=== PATIENT | male | born 1955 | race African-American/Black ===

== ENCOUNTER 2017-03-29 00:14 | Inpatient (IN) | payer OTHER ==
[2017-03-29 00:30] VITALS: BMI 23.9
--- NOTE | 2017-03-29 01:37 | PDOC ---
History of Present Illness - General Chief Complaint: Injury Stated Complaint: RIGHT ANKLE FRACTURE Time Seen by Provider: 03/29/17 01:37 - History of Present Illness Initial Comments: 62 year old male with PMH of sickle cell trait (one sickle crises 4 years prior ), chronic back pain (approximately once weekly oxycodone usage) presenting with right LE deformity and pain after mechanical trip and fall. He was walking down a hill near his home and attempted to avoid some visible ice only to step onto some black ice. At this point he slipped displacing his right leg outward and behind his body with his left leg forward. He reached out to brace himself with his right hand and injured his right wrist. He states that his foot was dragging on the right when he attempted to walk and could not bear weight and wasn't able to get up fully. He does admit to some initial parasthesias of his right foot but has sensation across his entire RLE. He has a known previous fracture of his right wrist and right shoulder from previous injuries. Did have some nausea with the sudden onset of pain. Denies fevers, chills, vomiting, diarrhea, chest pain, SOB, or other sick symptoms. 03/29/17 01:51 03/29/17 02:27 Past History - Past Medical History Allergies/Adverse Reactions: Allergies Allergy/AdvReac Type Severity Reaction Status Date / Time Penicillins Allergy Verified 03/29/17 00:29 Home Medications: Ambulatory Orders Divalproex [Depakote -] 250 mg PO HS 03/29/17 Divalproex [Depakote -] 500 mg PO ONCE 03/29/17 Anemia: Yes (sickle cell) COPD: No Hypercholesterolemia: Yes - Surgical History Abdominal Surgery: Yes (double hernia: 2001; hernia: 11/17/13) - Suicide/Smoking/Psychosocial Hx Smoking Status: No Smoking History: Never smoked Have you smoked in the past 12 months: No Number of Cigarettes Smoked Daily: 0 Information on smoking cessation initiated: No Hx Alcohol Use: No Drug/Substance Use Hx: No Substance Use Type: None Review of Systems - Review of Systems Constitutional: No: Chills, Diaphoresis, Fever HEENTM: No: Eye Pain, Blurred Vision Respiratory: No: Cough, Orthopnea, Shortness of Breath Cardiac (ROS): No: Chest Pain, Edema, Irregular Heart Rate ABD/GI: Yes: Nausea. No: Abdominal Distended, Diarrhea, Vomiting : No: Burning, Dysuria, Discharge Musculoskeletal: No: Back Pain, Joint Pain Integumentary: Yes: Lesions. No: Bruising, Flushing Neurological: No: Headache, Paresthesia *Physical Exam - Vital Signs Last Vital Signs Temp Pulse Resp BP Pulse Ox 97.4 F L 62 18 125/82 98 03/29/17 00:03/29/17 00:03/29/17 00:03/29/17 00:03/29/17 00:29 - Physical Exam General Appearance: Yes: Nourished, Appropriately Dressed. No: Apparent Distress HEENT: positive: EOMI, SAEED, Normal ENT Inspection, Normal Voice Neck: positive: Trachea midline, Normal Thyroid, Supple. negative: Tender, Rigid Respiratory/Chest: positive: Lungs Clear, Normal Breath Sounds. negative: Chest Tender, Respiratory Distress, Accessory Muscle Use Cardiovascular: positive: Regular Rhythm, Regular Rate Gastrointestinal/Abdominal: positive: Normal Bowel Sounds, Flat, Soft. negative : Tender Musculoskeletal: positive: Decreased Range of Motion. negative: Normal Inspection (Right leg TTP over entire tibia and ankle tender to palpation. Severe active and passive restriciton to movement of RLE 2/2 pain. No gross deformity or open skin. Leg does appear to be externally rotated with slightly inverted ankle. Left leg WNL. R wrist is slightly swollen and TTP with chronically restricted right hand squeeze since previous wrist injury. Patietn neurvascularly intact in R upper and R L extremties with good cap refill.) Extremity: positive: Normal Capillary Refill, Normal Inspection, Tender (Per above). negative: Normal Range of Motion Integumentary: positive: Normal Color, Dry, Warm Neurologic: positive: Fully Oriented, Alert, Normal Mood/Affect Procedures - Splinting Splint Location: Right: Ankle, Knee Pre-Proc Neuro Vasc Exam: normal Hand-Made Type: orthoglass Splint Type: Yes: Posterior (splint from foot to popliteal fossa), Long Leg ( splint wrapped around from lateral to medial knee) Post-Proc Neuro Vasc Exam: normal Danis Bandage: 6" Sling: No Complications: No Post splint xray: Yes Good repositioning: Yes ED Treatment Course - LABORATORY CBC & Chemistry Diagram: 03/29/17 02:18 02:09 Medical Decision Making - Medical Decision Making 62 year old male with mechanical trip and fall with xrays demonstrating displaced distal tibial and displaced proximal fibula fracture. Placed in posterior and stirrup splint with gentle re-approximation of normal anatomical position of RLE. He was neurovascularly intact before and after the procedure. 03/29/17 05:[address] Solis and admitted the patient under med surg for pain control and further operative management of this heavily displaced tib-fib fracture. Dr. Grace called back after the admission and we discussed the operative management of this case. He will have at look the films later in the day. CT of RLE pending. 03/29/17 06:30 *DC/Admit/Observation/Transfer Diagnosis at time of Disposition: Fracture tibia/fibula Qualifiers: Encounter type: initial encounter Fracture type: closed Laterality: right Qualified Code(s): S82.201A - Unspecified fracture of shaft of right tibia, initial encounter for closed fracture; S82.401A - Unspecified fracture of shaft of right fibula, initial encounter for closed fracture; S82.401A - Unspecified fracture of shaft of right fibula, initial encounter for closed fracture - Discharge Dispostion Condition at time of disposition: Stable Admit: Yes - Referrals Referrals: Stalin Gonsales MD [Primary Care Provider] - - Patient Instructions - Post Discharge Activity
[2017-03-29] MEDS ORDERED: morphine CARPU-JECT 4 MG/1 ML DISP.SYRIN IVPUSH ONE ×2 (01:48→04:55)
[2017-03-29] MEDS ORDERED: MORPHINE SULFATE 10 MG/1 ML *VIAL ONE ×2 (02:06→05:01)
[2017-03-29 02:18] LABS: BASO % 0.4 % (0-2.0); EOS % 0.9 % (0-4.5); HEMATOCRIT 41.4 % (35.4-49); HEMOGLOBIN 13.7 GM/dL (11.7-16.9); LYMPH % 14.5 % (8-40); MCH 31.1 pg (25.7-33.7); MCHC 33.1 g/dl (32.0-35.9); MEAN PLT VOLUME 8.5 fl (7.5-11.1); MONO % 7.4 % (3.8-10.2); NEUT % 76.8 % (42.8-82.8); PLATELET COUNT 185 K/MM3 (134-434); RDW 14.3 % (11.9-15.9)
[2017-03-29 02:38] LABS: INR 0.91 (0.82-1.09); PROTHROMBIN TIME (PATIENT) 10.3 SEC (9.98-11.88)
--- NOTE | 2017-03-29 02:40 | PDOC ---
Attending Attestation - [facility] HPI: 03/29/17 03:40 The patient is a 62 year old male with a significant past medical history of sickle cell trait (one sickle crisis 4 years prior), chronic back pain ( approximately once weekly oxycodone usage) presenting with right leg pain after mechanical trip and fall. He states he was walking down a hill near his home and while attempting to avoid some visible ice, slipped and fell on a separate ice patch. He reports slipping with his right leg outstretched and behind his body while his left leg remained forward. He reportedly reached out to brace his fall and subsequently injured his right wrist. He states could not bear weight and wasn't able to get up from the floor. He has a known previous fracture of his right wrist and right shoulder from previous injuries. The patient denies chest pain, shortness of breath, headache and dizziness. The patient denies fever, chills, nausea, vomit, diarrhea and constipation. The patient denies dysuria, frequency, urgency and hematuria. - Physicial Exam PE: 03/29/17 03:40 GENERAL: Well developed, well nourished. Awake and alert. No acute distress. HEENT: Normocephalic, atraumatic. PERRLA, EOMI. No conjunctival pallor. Sclera are non- icteric. Moist mucous membranes. Oropharynx is clear. NECK: Supple. Full ROM. No JVD. Carotid pulses 2+ and symmetric, without bruits. No thyromegaly. No lymphadenopathy. CARDIOVASCULAR: Regular rate and rhythm. No murmurs, rubs, or gallops. Distal pulses are 2+ and symmetric. PULMONARY: No evidence of respiratory distress. Lungs clear to auscultation bilaterally. No wheezing, rales or rhonchi. ABDOMINAL: Soft. Non-tender. Non-distended. No rebound or guarding. No organomegaly. Normoactive bowel sounds. MUSCULOSKELETAL Normal range of motion at all joints. No bony deformities or tenderness. No CVA tenderness. EXTREMITIES: (+) Decreased Range of Motion. Right LE is tender over entire tibia and ankle. Severe active and passive restriction to movement of RLE. Right LE is slightly externally rotated with slightly inverted ankle. Left leg WNL. The patient's right wrist is slightly swollen and tender to palpation. Pt has chronic restricted movement of right wrist secondary to previous injury. No cyanosis. No clubbing. No calf tenderness. remainder of extremities WNL. SKIN: Warm and dry. Normal capillary refill. No rashes. No jaundice. NEUROLOGICAL: Alert, awake, appropriate. Cranial nerves 2-12 intact. Normoreflexic in the upper and lower extremities. Normal speech. Toes are down-going bilaterally. Gait is normal without ataxia. PSYCHIATRIC: Cooperative. Good eye contact. Appropriate mood and affect. - Medical Decision Making 03/29/17 03:40 Documentation prepared by Angela Jimenez, acting as medical record coder for Zac Metz DO. 03/29/17 05:19 Dr. Grace, Orthopedist on-call, was paged via phone answering service requesting a doctor to doctor regarding this patient. 03/29/17 05:39 Upon 2nd attempt to page Dr. Grace, I was informed by the answering service that pages get sent to this physician every 45 minutes and requested I call in another 20 minutes to send the 2nd page requesting call back. <Angela Jimenez - Last Filed: 03/29/17 05:39> - Resident Resident Name: Flavio Delacruz - ED Attending Attestation I have performed the following: I have examined & evaluated the patient, The case was reviewed & discussed with the resident, I agree w/resident's findings & plan, Exceptions are as noted - Medical Decision Making 03/29/17 05:41 Pt admitted for orthopedic repair and pain control. <Zac Metz - Last Filed: 03/29/17 05:43>
[2017-03-29 02:41] LABS: ALBUMIN 3.5 g/dl (3.4-5.0); ALK PHOS 74 U/L (45-117); ANION GAP 6 (8-16); BILIRUBIN,TOTAL 0.4 mg/dL (0.2-1.0); BLOOD UREA NITROGEN 20 mg/dL (7-18); CALCIUM 8.5 mg/dL (8.5-10.1); CHLORIDE 106 mmol/L (98-107); CO2 29 mmol/L (21-32); CREATININE 1.2 mg/dL (0.7-1.3); GLUCOSE,RANDOM 85 mg/dL (74-106); POTASSIUM 5.2 mmol/L (3.5-5.1); SGOT/AST 17 U/L (15-37); SGPT/ALT 25 U/L (12-78); SODIUM 141 mmol/L (136-145); TOT PROT 6.8 g/dl (6.4-8.2)
[2017-03-29] MEDS ORDERED: HYDROmorphone HCL CARPU-JECT 1 MG/1 ML DISP.SYRIN IVPUSH ONE (05:16)
[2017-03-29] MEDS ORDERED: HYDROmorphone HCL CARPU-JECT 1 MG/1 ML DISP.SYRIN ONE (05:20)
--- NOTE | 2017-03-29 06:23 | HP ---
Admitting History and Physical - Primary Care Physician PCP: Stalin Gonsales - Admission Chief Complaint: s/p fall on ice R- leg pain History of Present Illness: This is a 62 y/o man who arrived to the ED s/p slip and fall on ice reports R- leg pain. Patient reports that while trying to avoid the ice he slipped on black ice, unable to bear weight. Patient denies head trauma or LOC. Patient denies fever, chills, cough, SOB, CP, AP, N/V/D, dysuria. History Source: Patient Limitations to Obtaining History: No Limitations - Past Medical History Heme/Onc: Yes: Sickle Cell Trait Musculoskeletal: Yes: Chronic low back pain - Past Surgical History Past Surgical History: Yes: Hernia Repair (double) - Smoking History Smoking history: Current some day smoker Have you smoked in the past 12 months: Yes Aproximately how many cigarettes per day: 0 (smokes cigars occasionally) - Alcohol/Substance Use Hx Alcohol Use: No History of Substance Use: reports: None - Social History Usual Living Arrangement: Yes: With Spouse ADL: Independent History of Recent Travel: No Home Medications - Allergies Allergies/Adverse Reactions: Allergies Allergy/AdvReac Type Severity Reaction Status Date / Time Penicillins Allergy Verified 03/29/17 00:29 - Home Medications Home Medications: Ambulatory Orders Divalproex [Depakote -] 250 mg PO HS 03/29/17 Divalproex [Depakote -] 500 mg PO ONCE 03/29/17 Home Medications (free text): Oxycontin Family Disease History - Family Disease History Family History: Unremarkable Review of Systems - Review of Systems Constitutional: reports: No Symptoms Eyes: reports: No Symptoms HENT: reports: No Symptoms Neck: reports: No Symptoms Cardiovascular: reports: No Symptoms Respiratory: reports: No Symptoms Gastrointestinal: reports: No Symptoms Genitourinary: reports: No Symptoms Breasts: reports: No Symptoms Reported Musculoskeletal: reports: Decreased ROM, Extremity Pain (R-leg), Joint Pain Integumentary: reports: No Symptoms Neurological: reports: No Symptoms Endocrine: reports: No Symptoms Hematology/Lymphatic: reports: No Symptoms Psychiatric: reports: No Symptoms Pain Intensity: 6 Physical Examination Vital Signs: Vital Signs Temperature 97.4 F L 03/29/17 00:29 Pulse Rate 62 03/29/17 00:29 Respiratory Rate 18 03/29/17 00:29 Blood Pressure 125/82 03/29/17 00:29 O2 Sat by Pulse Oximetry (%) 98 03/29/17 00:29 Constitutional: Yes: Well Nourished, No Distress, Calm Eyes: Yes: WNL, Conjunctiva Clear, EOM Intact, PERRL HENT: Yes: WNL, Atraumatic, Normocephalic Neck: Yes: WNL, Supple, Trachea Midline Cardiovascular: Yes: WNL, Regular Rate and Rhythm, S1, S2 Respiratory: Yes: WNL, Regular, CTA Bilaterally Gastrointestinal: Yes: WNL, Normal Bowel Sounds, Soft ...Rectal Exam: Yes: Deferred Renal/: Yes: WNL Breast(s): Yes: WNL Musculoskeletal: Yes: WNL Extremities: Yes: Deformity (right tib/fib) Peripheral Pulses WNL: Yes Integumentary: Yes: Other (superficial abrasions to right hand) Labs: CBC, BMP 03/29/17 02:09 03/29/17 02:09 Imaging - Results X-ray: Image Reviewed Cat Scan: Pending Problem List - Problems (1) Fracture tibia/fibula Code(s): S82.209A - UNSP FRACTURE OF SHAFT OF UNSP TIBIA, INIT FOR CLOS FX; S82.409A - UNSP FRACTURE OF SHAFT OF UNSP FIBULA, INIT FOR CLOS FX Qualifiers: Encounter type: initial encounter Fracture type: closed Laterality: right Qualified Code(s): S82.201A - Unspecified fracture of shaft of right tibia, initial encounter for closed fracture; S82.401A - Unspecified fracture of shaft of right fibula, initial encounter for closed fracture; S82.401A - Unspecified fracture of shaft of right fibula, initial encounter for closed fracture (2) Chronic low back pain Code(s): M54.5 - LOW BACK PAIN; G89.29 - OTHER CHRONIC PAIN (3) Sickle cell trait Code(s): D57.3 - SICKLE-CELL TRAIT (4) DVT prophylaxis Code(s): [id number] - Assessment/Plan This is a 62 y/o man with sickle cell trait, chronic low back pain who is s/p fall on ice. Admitted with R-Proximal Fibula and Distal Tibia Fx. Plan: 1. R- Tib/Fib Fx - Admit M/S - Appreciate Ortho consult - Pain Mgmt - Splint - neuro vascular checks - NPO - IVF 2. Chronic Low Back Pain - Stable - Continue to monitor and treat with interventions accordingly 3. FEN - D51/2NS@75cc/hr - Replete lytes prn - NPO 4. DVT Prophylaxis - SCD to LLE Code Status: Full Code Dispo: Requires Inpatient Care Visit type - Emergency Visit Emergency Visit: Yes ED Registration Date: 03/29/17 Care time: The patient presented to the Emergency Department on the above date and was hospitalized for further evaluation of their emergent condition. - New Patient This patient is new to me today: Yes Date on this admission: 03/29/17 - Critical Care Critical Care patient: No
[2017-03-29] MEDS ORDERED: MORPHINE SULFATE 10 MG/1 ML *VIAL IVPUSH PRN (06:28)
[2017-03-29] MEDS ORDERED: PT OWN MED DRAWER 7, Y5N ONE (10:02)
--- NOTE | 2017-03-29 10:07 | CON.ORTH ---
Consult Reason for Consultation:: right tib/fib fx - Past Medical History Musculoskeletal: Yes: Chronic low back pain - Past Surgical History Past Surgical History: Yes: Hernia Repair (double) - Alcohol/Substance Use Hx Alcohol Use: No History of Substance Use: reports: None - Smoking History Smoking history: Current some day smoker Have you smoked in the past 12 months: Yes Aproximately how many cigarettes per day: 0 - Social History ADL: Independent History of Recent Travel: No Home Medications - Allergies Allergies/Adverse Reactions: Allergies Allergy/AdvReac Type Severity Reaction Status Date / Time Penicillins Allergy Verified 03/29/17 00:29 - Home Medications Home Medications: Ambulatory Orders Divalproex [Depakote -] 250 mg PO HS 03/29/17 Divalproex [Depakote -] 500 mg PO ONCE 03/29/17 Physical Exam for Ortho Vital Signs: Vital Signs Temperature 97.5 F L 03/29/17 08:56 Pulse Rate 68 03/29/17 08:56 Respiratory Rate 18 03/29/17 08:56 Blood Pressure 122/74 03/29/17 08:56 O2 Sat by Pulse Oximetry (%) 98 03/29/17 08:56 Labs: CBC, BMP 03/29/17 02:09 03/29/17 02:09 INR, PTT INR 0.91 (0.82-1.09) 03/29/17 02:09 - Lower Extremity Ankle: Yes: Right, Deformity, Limited ROM (splint intact, nvi), Pain, Swelling, Tenderness, Other Imaging - Results X-ray: Report Reviewed, Image Reviewed Cat Scan: Report Reviewed, Image Reviewed Assessment/Plan 62 y/o man who arrived to the ED s/p slip and fall on ice reports R- leg pain. Patient reports that while trying to avoid the ice he slipped on black ice, unable to bear weight. Patient denies head trauma or LOC. Patient denies fever, chills, cough, SOB, CP, AP, N/V/D, dysuria. a/p right displaced tibial shaft fx, proximal fibula fx Risks and benefits d/w pt in detail will require ORIF- IM gonzalo Surgical clearance tentatively schedule for Saturday afternoon strict elevation NPO after midnight on Saturday d/w Dr. Grace
[2017-03-29] MEDS: DIVALPROEX SODIUM 500 MG TABLET E.C. PO SCH (10:48)
[2017-03-29] MEDS ORDERED: DIPHTH,PERTUSS(ACELL),TET 0.5 ML DISP.SYRIN IM ONE (11:00)
[2017-03-29] MEDS ORDERED: FLU VACCINE QUAD 60 MCG/0.5 ML (MDV 17-18) IM ONE (12:00)
[2017-03-29] MEDS ORDERED: PNEUMOC 13-VAL CONJ-DIP CRM/PF 0.5 ML DISP.SYRIN IM ONE (12:00)
[2017-03-29] MEDS: DEXTROSE 5%-0.45% SALINE 1,000 ML IV SCH (12:03)
[2017-03-29] MEDS: ONDANSETRON 4 MG/2 ML VIAL IVPUSH PRN ×2 (13:14→21:55)
--- NOTE | 2017-03-29 13:17 | PN ---
Progress Note, Physician Chief Complaint: Mr De La Cruz says the pain is controlled, however the morphine causes nausea. No cp or sob. - Current Medication List Current Medications: Active Medications Divalproex Sodium (Depakote -) 500 mg PO DAILY COUNTS INCLUDE 234 BEDS AT THE [facility] Last Admin: 03/29/17 10:48 Dose: 500 mg Divalproex Sodium (Depakote -) 250 mg PO [facility] Dextrose/Sodium Chloride (D5-1/2ns -) 1,000 mls @ 75 mls/hr IV ASDIR COUNTS INCLUDE 234 BEDS AT THE [facility] Last Admin: 03/29/17 12:03 Dose: 75 mls/hr Morphine Sulfate (Morphine Injection -) 4 mg IVPUSH Q4H PRN PRN Reason: PAIN LEVEL 6-10 Ondansetron HCl (Zofran Injection) 4 mg IVPUSH Q6H PRN PRN Reason: NAUSEA AND/OR VOMITING Last Admin: 03/29/17 13:14 Dose: 4 mg - Objective Vital Signs: Vital Signs Temperature 36.4 C L 03/29/17 08:56 Pulse Rate 68 03/29/17 08:56 Respiratory Rate 18 03/29/17 08:56 Blood Pressure 122/74 03/29/17 08:56 O2 Sat by Pulse Oximetry (%) 98 03/29/17 08:56 Constitutional: Yes: Well Nourished, No Distress, Calm Cardiovascular: Yes: Regular Rate and Rhythm. No: Gallop, Murmur, Rub Respiratory: Yes: Regular, CTA Bilaterally. No: Rales, Rhonchi, Wheezes Gastrointestinal: Yes: Normal Bowel Sounds, Soft. No: Distention, Tenderness Extremities: Yes: WNL Edema: No Labs: CBC, BMP 03/29/17 02:09 03/29/17 02:09 INR, PTT INR 0.91 (0.82-1.09) 03/29/17 02:09 Problem List - Problems (1) Closed fracture of right tibia and fibula Assessment/Plan: -ortho consulted -planning for surgery on Saturday -trial of oxycodone for pain control -EKG reviewed, NSR -will order chest x-ray -low risk for complications from medical standpoint -DVT PPx with heparin, hold Saturday evening dose Code(s): S82.201A - UNSP FRACTURE OF SHAFT OF RIGHT TIBIA, INIT FOR CLOS FX; S82.401A - UNSP FRACTURE OF SHAFT OF RIGHT FIBULA, INIT FOR CLOS FX Qualifiers: Encounter type: initial encounter Qualified Code(s): S82.201A - Unspecified fracture of shaft of right tibia, initial encounter for closed fracture; S82.401A - Unspecified fracture of shaft of right fibula, initial encounter for closed fracture; S82.401A - Unspecified fracture of shaft of right fibula, initial encounter for closed fracture (2) Sickle cell trait Assessment/Plan: -present Code(s): D57.3 - SICKLE-CELL TRAIT (3) Chronic low back pain Assessment/Plan: -will be treated with oxycodone Code(s): M54.5 - LOW BACK PAIN; G89.29 - OTHER CHRONIC PAIN
--- NOTE | 2017-03-29 14:08 | EKG ---
Test Reason : Blood Pressure : / mmHG Vent. Rate : 065 BPM Atrial Rate : 065 BPM P-R Int : 128 ms QRS Dur : 082 ms QT Int : 382 ms P-R-T Axes : 061 034 -24 degrees QTc Int : 397 ms POOR DATA QUALITY, INTERPRETATION MAY BE ADVERSELY AFFECTED NORMAL SINUS RHYTHM MINIMAL VOLTAGE CRITERIA FOR LVH, MAY BE NORMAL VARIANT T WAVE ABNORMALITY, CONSIDER INFERIOR ISCHEMIA ABNORMAL ECG NO PREVIOUS ECGS AVAILABLE Confirmed by YASMIN ALEGRIA MD ([id number]) on 03/29/2017 2:07:29 PM Referred By: Confirmed By:YASMIN ALEGRIA MD
[2017-03-29] MEDS: oxyCODONE HCL 5 MG TABLET PO PRN ×2 (15:03→19:49)
[2017-03-29] MEDS: HEPARIN NA (PORCINE) 5,000 UNITS/ML 1ML VIAL SQ SCH ×2 (16:48→21:55)
[2017-03-29] MEDS: DIVALPROEX SODIUM 250 MG TABLET E.C. (FP) PO SCH (21:55)
[2017-03-30] MEDS: DEXTROSE 5%-0.45% SALINE 1,000 ML IV SCH (01:35)
[2017-03-30] MEDS: oxyCODONE HCL 5 MG TABLET PO PRN ×3 (04:11→17:34)
[2017-03-30] MEDS: HEPARIN NA (PORCINE) 5,000 UNITS/ML 1ML VIAL SQ SCH ×3 (06:16→21:50)
[2017-03-30 08:05] LABS: BASO % 0.2 % (0-2.0); EOS % 0.8 % (0-4.5); HEMATOCRIT 35.1 % (35.4-49); HEMOGLOBIN 11.5 GM/dL (11.7-16.9); LYMPH % 16.7 % (8-40); MCH 30.8 pg (25.7-33.7); MCHC 32.8 g/dl (32.0-35.9); MEAN CELL VOLUME 93.9 fl (80-96); MEAN PLT VOLUME 8.1 fl (7.5-11.1); MONO % 13.1 % (3.8-10.2); NEUT % 69.2 % (42.8-82.8); PLATELET COUNT 159 K/MM3 (134-434); RBC 3.74 M/mm3 (4.00-5.60); RDW 14.1 % (11.9-15.9); WHITE BLOOD COUNT 7.7 K/mm3 (4.0-10.0)
[2017-03-30 08:45] LABS: CHLORIDE 103 mmol/L (98-107); POTASSIUM 4.2 mmol/L (3.5-5.1); SODIUM 138 mmol/L (136-145)
[2017-03-30 08:53] LABS: ANION GAP 7 (8-16); BLOOD UREA NITROGEN 15 mg/dL (7-18); CALCIUM 7.3 mg/dL (8.5-10.1); CO2 28 mmol/L (21-32); CREATININE 1.2 mg/dL (0.7-1.3); GLUCOSE,RANDOM 98 mg/dL (74-106); PHOSPHOROUS 3.1 mg/dL (2.5-4.9)
[2017-03-30] MEDS: DIVALPROEX SODIUM 500 MG TABLET E.C. PO SCH (09:55)
--- NOTE | 2017-03-30 13:44 | PN ---
Progress Note (short form) - Note Progress Note: Pt seen and examined. He has a right tibial shaft fracture. He is in a U splint. RLE grossly NVI. Is swollen. Imp R tibial shaft fracture Rec NPO after midnight saturday. Medical clearance for surgery Saturday. Saturday AM surgery: right intramedullary tibial gonzalo
[2017-03-30] MEDS ORDERED: PT OWN MED DRAWER 7, Y5N ONE (21:03)
[2017-03-30] MEDS: DIVALPROEX SODIUM 250 MG TABLET E.C. (FP) PO SCH (21:50)
--- NOTE | 2017-03-30 22:35 | PN ---
Progress Note, Physician Chief Complaint: C/O Rt LE Pain and bump in back - Current Medication List Current Medications: Active Medications Divalproex Sodium (Depakote -) 500 mg PO DAILY [facility] Last Admin: 03/30/17 09:55 Dose: 500 mg Divalproex Sodium (Depakote -) 250 mg PO HS [facility] Last Admin: 03/30/17 21:50 Dose: 250 mg Heparin Sodium (Porcine) (Heparin -) 5,000 unit SQ TID [facility] Last Admin: 03/30/17 21:50 Dose: 5,000 unit Dextrose/Sodium Chloride (D5-1/2ns -) 1,000 mls @ 75 mls/hr IV ASDIR [facility] Last Admin: 03/30/17 01:35 Dose: 75 mls/hr Morphine Sulfate (Morphine Injection -) 4 mg IVPUSH Q4H PRN PRN Reason: PAIN LEVEL 6-10 Ondansetron HCl (Zofran Injection) 4 mg IVPUSH Q6H PRN PRN Reason: NAUSEA AND/OR VOMITING Last Admin: 03/29/17 21:55 Dose: 4 mg Oxycodone HCl (Roxicodone -) 10 mg PO Q4H PRN PRN Reason: PAIN LEVEL 7 - 10 Last Admin: 03/30/17 17:34 Dose: 10 mg - Objective Vital Signs: Vital Signs Temperature 100.0 F H 03/30/17 18:00 Pulse Rate 87 03/30/17 18:00 Respiratory Rate 18 03/30/17 18:00 Blood Pressure 130/70 03/30/17 18:00 O2 Sat by Pulse Oximetry (%) 96 03/29/17 21:00 Elderly male not in distress HEENT: Mm moist, no anemia, no Bruit CHEST: CTA B/L CVS: S1S2 R no m/g/r ABD: No distention, non tender Bs + EXT: 2 sebaceous cyst on the back, , flank Lipoma, Rt LE in U Cast [employer] A[employer]LYST: AOX3 non focal Labs: CBC, BMP 03/30/17 06:55 03/30/17 06:55 INR, PTT INR 0.91 (0.82-1.09) 03/29/17 02:09 - ....Imaging Chest X-ray: Report Reviewed (No acute changes) X-ray: Report Reviewed (Rt Tibail Shaft fracture) Problem List - Problems (1) Closed fracture of right tibia and fibula Assessment/Plan: Pain control, bed rest, U splint schedule for surgery on Saturday Code(s): S82.201A - UNSP FRACTURE OF SHAFT OF RIGHT TIBIA, INIT FOR CLOS FX; S82.401A - UNSP FRACTURE OF SHAFT OF RIGHT FIBULA, INIT FOR CLOS FX Qualifiers: Encounter type: initial encounter Qualified Code(s): S82.201A - Unspecified fracture of shaft of right tibia, initial encounter for closed fracture; S82.401A - Unspecified fracture of shaft of right fibula, initial encounter for closed fracture; S82.401A - Unspecified fracture of shaft of right fibula, initial encounter for closed fracture (2) Sickle cell trait Assessment/Plan: IV Hydration Code(s): D57.3 - SICKLE-CELL TRAIT (3) Chronic low back pain Assessment/Plan: Pain management Code(s): M54.5 - LOW BACK PAIN; G89.29 - OTHER CHRONIC PAIN (4) Mood swings Assessment/Plan: H/O moods swings on Depakote Code(s): F39 - UNSPECIFIED MOOD [AFFECTIVE] DISORDER (5) Frequent unifocal PVCs Assessment/Plan: Frequent univocal PVC denies any chest pain or SOB Cardiology consult, ECHO cardiogram, tele monitoring if rebounded by cardiology consult. Code(s): I49.3 - VENTRICULAR PREMATURE DEPOLARIZATION
[2017-03-31] MEDS: DEXTROSE 5%-0.45% SALINE 1,000 ML IV SCH (05:53)
[2017-03-31] MEDS: HEPARIN NA (PORCINE) 5,000 UNITS/ML 1ML VIAL SQ SCH ×3 (05:54→21:12)
[2017-03-31 07:51] LABS: BASO % 0.8 % (0-2.0); EOS % 0.6 % (0-4.5); HEMATOCRIT 32.6 % (35.4-49); HEMOGLOBIN 11.2 GM/dL (11.7-16.9); MCH 31.5 pg (25.7-33.7); MCHC 34.4 g/dl (32.0-35.9); MEAN CELL VOLUME 91.7 fl (80-96); MEAN PLT VOLUME 8.5 fl (7.5-11.1); MONO % 10.9 % (3.8-10.2); NEUT % 76.7 % (42.8-82.8); PLATELET COUNT 159 K/MM3 (134-434); RBC 3.55 M/mm3 (4.00-5.60)
[2017-03-31 08:08] LABS: CHLORIDE 103 mmol/L (98-107); POTASSIUM 4.3 mmol/L (3.5-5.1); SODIUM 139 mmol/L (136-145)
[2017-03-31 08:13] LABS: ANION GAP 6 (8-16); BLOOD UREA NITROGEN 11 mg/dL (7-18); CALCIUM 7.9 mg/dL (8.5-10.1); CO2 30 mmol/L (21-32); CREATININE 1.1 mg/dL (0.7-1.3); GLUCOSE,RANDOM 104 mg/dL (74-106)
[2017-03-31] MEDS: oxyCODONE HCL 5 MG TABLET PO PRN ×2 (10:14→21:11)
[2017-03-31] MEDS: DIVALPROEX SODIUM 500 MG TABLET E.C. PO SCH (10:17)
[2017-03-31] MEDS: DOCUSATE SODIUM 100 MG CAPSULE (FP) PO SCH ×2 (11:58→21:11)
--- NOTE | 2017-03-31 12:40 | PN ---
Progress Note, Physician Chief Complaint: C/O Palpitation EKG shows frequent PVCs T wave changes in inferior leads also Rt LE Pain and bump in back - Current Medication List Current Medications: Active Medications Divalproex Sodium (Depakote -) 500 mg PO DAILY [facility] Last Admin: 03/31/17 10:17 Dose: 500 mg Divalproex Sodium (Depakote -) 250 mg PO HS [facility] Last Admin: 03/30/17 21:50 Dose: 250 mg Docusate Sodium (Colace -) 100 mg PO BID [facility] Last Admin: 03/31/17 11:58 Dose: 100 mg Heparin Sodium (Porcine) (Heparin -) 5,000 unit SQ TID [facility] Last Admin: 03/31/17 05:54 Dose: 5,000 unit Dextrose/Sodium Chloride (D5-1/2ns -) 1,000 mls @ 75 mls/hr IV ASDIR [facility] Last Admin: 03/31/17 05:53 Dose: 75 mls/hr Morphine Sulfate (Morphine Injection -) 4 mg IVPUSH Q4H PRN PRN Reason: PAIN LEVEL 6-10 Ondansetron HCl (Zofran Injection) 4 mg IVPUSH Q6H PRN PRN Reason: NAUSEA AND/OR VOMITING Last Admin: 03/29/17 21:55 Dose: 4 mg Oxycodone HCl (Roxicodone -) 10 mg PO Q4H PRN PRN Reason: PAIN LEVEL 7 - 10 Last Admin: 03/31/17 10:14 Dose: 10 mg - Objective Vital Signs: Vital Signs Temperature 99.2 F 03/31/17 09:15 Pulse Rate 92 H 03/31/17 09:15 Respiratory Rate 18 03/31/17 09:15 Blood Pressure 126/50 03/31/17 09:15 O2 Sat by Pulse Oximetry (%) 97 03/30/17 21:00 Elderly male not in distress HEENT: Mm moist, no anemia, no Bruit CHEST: CTA B/L CVS: S1S2 R no m/g/r ABD: No distention, non tender Bs + EXT: 2 sebaceous cyst on the back, , flank Lipoma, Rt LE in U Cast [employer]: AOX3 non focal Labs: CBC, BMP 03/31/17 07:00 03/31/17 07:00 INR, PTT INR 0.91 (0.82-1.09) 03/29/17 02:09 - ....Imaging EKG: Report Reviewed (HR 90 MD 132 QRS 74 QTc 44 Impression; NSR Frequent PVCs St t changes in inf leads) Problem List - Problems (1) Closed fracture of right tibia and fibula Assessment/Plan: Pain control, bed rest, U splint schedule for surgery on Saturday Code(s): S82.201A - UNSP FRACTURE OF SHAFT OF RIGHT TIBIA, INIT FOR CLOS FX; S82.401A - UNSP FRACTURE OF SHAFT OF RIGHT FIBULA, INIT FOR CLOS FX Qualifiers: Encounter type: initial encounter Qualified Code(s): S82.201A - Unspecified fracture of shaft of right tibia, initial encounter for closed fracture; S82.401A - Unspecified fracture of shaft of right fibula, initial encounter for closed fracture; S82.401A - Unspecified fracture of shaft of right fibula, initial encounter for closed fracture (2) Sickle cell trait Assessment/Plan: IV Hydration Code(s): D57.3 - SICKLE-CELL TRAIT (3) Chronic low back pain Assessment/Plan: Pain management Code(s): M54.5 - LOW BACK PAIN; G89.29 - OTHER CHRONIC PAIN (4) Pre-op evaluation Assessment/Plan: EKG shows frequent PVC will F/U ECHO and Cardiology for clearance Code(s): Z01.818 - ENCOUNTER FOR OTHER PREPROCEDURAL EXAMINATION (5) Frequent unifocal PVCs Assessment/Plan: Frequent univocal PVC denies any chest pain or SOB Cardiology consult, ECHO cardiogram, tele monitoring if rebounded by cardiology consult. Code(s): I49.3 - VENTRICULAR PREMATURE DEPOLARIZATION
--- NOTE | 2017-03-31 19:02 | CON.CARD ---
Cardiology Consult (text) - Consultation Consultation Note: CC: pre-op clearance 62 yo with no h/o mood disorder on depatkote, sickle cell trait presents s/p fall c/b right tib/fib fx with plan for surgical repair Patient denies h/o cad, chf, tia/cva, dm, ckd. states he had a stress test many years ago (was asx at the time). Believes it was normal. States he is active walking up and [place] in [place] neighborhood regularly without sx's or limitations. Can also walk up multiple flights of stairs without s pmhx/pshx: per hpi, Hernia Repair (double) social hx: former tob. current cigar smoker. + etoh fam hx: no premature cad ros: per hpi Current Medications Divalproex Sodium (Depakote -) 500 mg PO DAILY [facility] Last Admin: 03/31/17 10:17 Dose: 500 mg Divalproex Sodium (Depakote -) 250 mg PO HS [facility] Last Admin: 03/30/17 21:50 Dose: 250 mg Docusate Sodium (Colace -) 100 mg PO BID [facility] Last Admin: 03/31/17 11:58 Dose: 100 mg Heparin Sodium (Porcine) (Heparin -) 5,000 unit SQ TID [facility] Last Admin: 03/31/17 14:01 Dose: 5,000 unit Dextrose/Sodium Chloride (D5-1/2ns -) 1,000 mls @ 75 mls/hr IV ASDIR [facility] Last Admin: 03/31/17 05:53 Dose: 75 mls/hr Morphine Sulfate (Morphine Injection -) 4 mg IVPUSH Q4H PRN PRN Reason: PAIN LEVEL 6-10 Ondansetron HCl (Zofran Injection) 4 mg IVPUSH Q6H PRN PRN Reason: NAUSEA AND/OR VOMITING Last Admin: 03/29/17 21:55 Dose: 4 mg Oxycodone HCl (Roxicodone -) 10 mg PO Q4H PRN PRN Reason: PAIN LEVEL 7 - 10 Last Admin: 03/31/17 10:14 Dose: 10 mg Vital Signs - 24 hr 03/30/17 03/30/17 03/31/17 21:00 23:00 06:00 Temperature 99.7 F H 99.9 F H Pulse Rate 95 H 94 H Respiratory 18 18 16 Rate Blood Pressure 128/70 108/66 O2 Sat by Pulse 97 Oximetry (%) 03/31/17 03/31/17 03/31/17 09:00 09:15 15:05 Temperature 99.2 F 98.3 F Pulse Rate 92 H 77 Respiratory 18 18 Rate Blood Pressure 126/50 129/61 O2 Sat by Pulse 96 Oximetry (%) 03/31/17 18:00 Temperature 97.9 F Pulse Rate 74 Respiratory 20 Rate Blood Pressure 127/65 O2 Sat by Pulse Oximetry (%) Intake & Output 03/29/17 03/30/17 03/31/17 04/01/17 07:59 07:59 07:59 07:59 Intake Total 3550 900 575 Output Total 600 3325 1400 Balance 5300 -0615 -825 Weight 167 lb 167 lb nad, calm jvd flat, neck supple ctab, nl effort rrr nl s1. s2 no mrg + bs soft nt nd ext without e/c/c + dp/pt, no carotid bruits no jaundice, diaphoresis aaox3 CBC, BMP 03/31/17 07:00 03/31/17 07:00 Laboratory Tests 03/29/17 03/29/17 03/30/17 02:09 07:45 06:55 Potassium 5.2 H Magnesium 2.0 Total Bilirubin 0.4 AST 17 ALT 25 Alkaline Phosphatase 74 Creatine Kinase Index 0.9 Troponin I < 0.02 Albumin 3.5 ekg: nsr, lvh. inferior twi. no priors for comparison. 62 yo with no h/o mood disorder on depatkote, sickle cell trait presents s/p fall c/b right tib/fib fx with plan for surgical repair pre-op clearance - Patient with non-specific t wave abnormalities on ekg. no priors to compare to. patient asx from cv perspective. no further testing needed prior to surgery. Patient with RCRI of 0, has a low estimated risk of rosita-operative CV events. Patient counseled on risk. - monitor bp/hr rosita-operatively.
[2017-03-31] MEDS: DIVALPROEX SODIUM 250 MG TABLET E.C. (FP) PO SCH (21:12)
[2017-04-01] MEDS: HEPARIN NA (PORCINE) 5,000 UNITS/ML 1ML VIAL SQ SCH ×3 (05:38→21:38)
[2017-04-01] MEDS: DEXTROSE 5%-0.45% SALINE 1,000 ML IV SCH ×2 (05:52→09:04)
[2017-04-01 08:04] LABS: BASO % 0.4 % (0-2.0); EOS % 3.1 % (0-4.5); HEMATOCRIT 34.1 % (35.4-49); HEMOGLOBIN 11.3 GM/dL (11.7-16.9); LYMPH % 13.3 % (8-40); MCHC 33.1 g/dl (32.0-35.9); MEAN CELL VOLUME 93.7 fl (80-96); MONO % 12.3 % (3.8-10.2); NEUT % 70.9 % (42.8-82.8); PLATELET COUNT 164 K/MM3 (134-434); RBC 3.64 M/mm3 (4.00-5.60); RDW 13.5 % (11.9-15.9); WHITE BLOOD COUNT 6.8 K/mm3 (4.0-10.0)
[2017-04-01 08:42] LABS: ANION GAP 4 (8-16); BLOOD UREA NITROGEN 10 mg/dL (7-18); CALCIUM 8.3 mg/dL (8.5-10.1); CHLORIDE 104 mmol/L (98-107); CO2 33 mmol/L (21-32); CREATININE 1.1 mg/dL (0.7-1.3); GLUCOSE,RANDOM 96 mg/dL (74-106); POTASSIUM 4.6 mmol/L (3.5-5.1); SODIUM 141 mmol/L (136-145)
--- NOTE | 2017-04-01 08:47 | PN ---
Progress Note (short form) - Note Progress Note: Ortho Pt seen and examined- for OR today splint intact, decr swelling, nvi a/p OR today NPO d/w Dr. Tafoya
[2017-04-01] MEDS: DIVALPROEX SODIUM 500 MG TABLET E.C. PO SCH (09:04)
[2017-04-01] MEDS: DOCUSATE SODIUM 100 MG CAPSULE (FP) PO SCH ×2 (09:04→21:38)
--- NOTE | 2017-04-01 10:29 | PN ---
Physical Exam: SUBJECTIVE: Patient seen and examined. He has pain in his right leg. No other complaints. OBJECTIVE: Vital Signs Period Temp Pulse Resp BP Sys/Connell Pulse Ox Last 24 Hr 97.9 F-99.5 F 67-77 18-20 110-129/60-65 96-96 GENERAL: The patient is awake, alert, and fully oriented, in no acute distress. LUNGS: Breath sounds equal, clear to auscultation bilaterally, no wheezes, no crackles, no accessory muscle use. HEART: Regular rate and rhythm, S1, S2 without murmur, rub or gallop. ABDOMEN: Soft, nontender, nondistended, normoactive bowel sounds, no guarding, no rebound, no hepatosplenomegaly, no masses. EXTREMITIES: 2+ pulses, warm, well-perfused, no edema. Splint on RLE. Laboratory Results - last 24 hr 04/01/17 04/01/17 07:51 07:51 WBC 6.8 RBC 3.64 L Hgb 11.3 L Hct 34.1 L MCV 93.7 MCH 31.0 MCHC 33.1 RDW 13.5 Plt Count 164 MPV 8.0 Neutrophils % 70.9 Lymphocytes % 13.3 D Monocytes % 12.3 H Eosinophils % 3.1 D Basophils % 0.4 Sodium 141 Potassium 4.6 Chloride 104 Carbon Dioxide 33 H Anion Gap 4 L BUN 10 Creatinine 1.1 Random Glucose 96 Calcium 8.3 L Active Medications Generic Name Dose Route Start Last Admin Trade Name Freq PRN Reason Stop Dose Admin Divalproex Sodium 500 mg 03/29/17 10:00 04/01/17 09:04 Depakote - PO Not Given DAILY JAY Divalproex Sodium 250 mg 03/29/17 22:00 03/31/17 21:12 Depakote - PO 250 mg HS JAY Administration Docusate Sodium 100 mg 03/31/17 10:30 04/01/17 09:04 Colace - PO Not Given BID JAY Heparin Sodium (Porcine) 5,000 unit 03/29/17 15:15 04/01/17 05:38 Heparin - SQ Not Given TID JAY Dextrose/Sodium Chloride 1,000 mls @ 75 mls/hr 03/29/17 06:30 04/01/17 09:04 D5-1/2ns - IV Not Given ASDIR [facility] Morphine Sulfate 4 mg 03/29/17 06:28 Morphine Injection - IVPUSH Q4H PRN PAIN LEVEL 6-10 Ondansetron HCl 4 mg 03/29/17 06:59 03/29/17 21:55 Zofran Injection IVPUSH 4 mg Q6H PRN Administration NAUSEA AND/OR VOMITING Oxycodone HCl 10 mg 03/29/17 13:56 03/31/17 21:11 Roxicodone - PO 10 mg Q4H PRN Administration PAIN LEVEL 7 - 10 ASSESSMENT/PLAN: 1. Closed fracture of right tibia and fibula - Splint applied - Plan for surgery today 2. Sickle cell trait - Stable 3. Chronic low back pain 4. PVCs
[2017-04-01] MEDS ORDERED: ROPIVACAINE HCL 0.5% 30ML VIAL ONE (11:01)
[2017-04-01] MEDS ORDERED: DEXAMETHASONE SOD PHOSPHATE/PF 10 MG/ML SDV ONE (11:01)
[2017-04-01] MEDS ORDERED: MIDAZOLAM HCL 2 MG/2 ML SINGLE DOSE VIAL ONE ×3 (11:04→11:45)
[2017-04-01] MEDS ORDERED: PROPOFOL 20 ML ONE (11:09)
[2017-04-01] MEDS ORDERED: ceFAZolin SODIUM 1 GM VIAL IVPB ONE ×2 (11:40)
[2017-04-01] MEDS ORDERED: LACTATED RINGERS SOLUTION 1,000 ML IV SCH (12:00)
--- NOTE | 2017-04-01 13:10 | OP ---
Operative Note - Note: Operative Date: 04/01/17 ([facility]) Pre-Operative Diagnosis: right tibial shaft fx Operation: right tibia IM gonzalo Post-Operative Diagnosis: Same as Pre-op Surgeon: Stalin Tafoya Anesthesia: General, Local Estimated Blood Loss (mls): 100 Operative Report Dictated: Yes
[2017-04-01] MEDS: CEFAZOLIN 1 GM PUSH 1 GM/10 ML DISP.SYRIN IVPUSH SCH (20:18)
--- NOTE | 2017-04-01 20:20 | OP ---
DATE OF OPERATION: 04/01/2017 PREOPERATIVE DIAGNOSIS: Right distal tibial shaft fracture. POSTOPERATIVE DIAGNOSIS: Right distal tibial shaft fracture. PROCEDURE: Intramedullary rodding of the right tibia/fibular fracture. SURGICAL ATTENDING: Stalin Tafoya MD ANESTHESIA: Regional with sedation. CLOSURE: A Monica intramedullary gonzalo being 11 x 360 mm, with appropriate interlocks; 0 Vicryl fascia, 2-0 subcutaneous, and kev for skin. ESTIMATED BLOOD LOSS: Approximately 100 mL. COMPLICATIONS: None. CONDITION: Recovery in stable condition. DESCRIPTION OF OPERATIVE PROCEDURE: Patient taken to the operating room on April 01, 2017. Regional anesthesia and sedation were administered by the anesthesiologist. IV Kefzol was administered prophylactically prior to the case. The right lower extremity was prepped and draped in the usual sterile fashion. A 6-cm longitudinal incision over the medial aspect of the patellar tendon was incised. Hemostasis was achieved using Bovie cautery. Sharp dissection was carried medial to the tendon, and with blunt dissection to the starting location of the gonzalo. A guidewire was drilled from the starting spot into the intramedullary canal. Proper placement was confirmed in the AP and lateral planes with the use of the image intensifier. This was overreamed with a proximal reamer, opening the proximal canal. A beaded guidewire was then placed down the intramedullary canal and passed past the fracture, down all the way to the physeal scar of the distal tibia. The intramedullary canal was reamed until a 12.5 reamer achieved good chatter. The length of the gonzalo was measured. An 11 x 360-mm gonzalo was then malleted into place, achieving excellent reduction of the fracture. Two proximal screws were placed, one dynamic and one static using the outrigger. Two distal screws were placed using the freehand technique, one anterior to posterior, one mediolateral, by drill and depth gauging and with the appropriate-size screw. Proper placement of all hardware with excellent reduction of the fracture was confirmed in the AP and lateral planes using the image intensifier. The incisions were irrigated. A cap screw was placed on the proximal tibia. The medial fascial incision was closed using 0 Vicryl, 2-0 for subcutaneous, and kev for skin for that incision and all the stab incisions as well. Sterile pressure dressing was placed over the knee. Patient awakened from anesthesia and transferred to Recovery in stable condition. No complications. Estimated blood loss: Less than 100 mL. Елена [id number]
[2017-04-01] MEDS ORDERED: PT OWN MED DRAWER 7, Y5N ONE (21:37)
[2017-04-01] MEDS: DIVALPROEX SODIUM 250 MG TABLET E.C. (FP) PO SCH (21:38)
[2017-04-02] MEDS: CEFAZOLIN 1 GM PUSH 1 GM/10 ML DISP.SYRIN IVPUSH SCH (01:58)
[2017-04-02] MEDS: HEPARIN NA (PORCINE) 5,000 UNITS/ML 1ML VIAL SQ SCH (05:43)
[2017-04-02 07:34] LABS: HEMATOCRIT 30.8 % (35.4-49); HEMOGLOBIN 10.5 GM/dL (11.7-16.9); MCH 31.1 pg (25.7-33.7); MCHC 34.2 g/dl (32.0-35.9); PLATELET COUNT 178 K/MM3 (134-434); RBC 3.38 M/mm3 (4.00-5.60); RDW 13.5 % (11.9-15.9); WHITE BLOOD COUNT 12.7 K/mm3 (4.0-10.0)
[2017-04-02] MEDS ORDERED: MORPHINE SULFATE 10 MG/1 ML *VIAL IVPUSH PRN (07:37)
[2017-04-02] MEDS ORDERED: ONDANSETRON 4 MG/2 ML VIAL IVPUSH PRN (07:37)
[2017-04-02] MEDS ORDERED: oxyCODONE HCL 5 MG TABLET PO PRN (07:37)
[2017-04-02 07:52] LABS: ANION GAP 3 (8-16); BLOOD UREA NITROGEN 13 mg/dL (7-18); CALCIUM 7.7 mg/dL (8.5-10.1); CHLORIDE 105 mmol/L (98-107); CO2 30 mmol/L (21-32); GLUCOSE,RANDOM 102 mg/dL (74-106); POTASSIUM 4.2 mmol/L (3.5-5.1); SODIUM 138 mmol/L (136-145)
[2017-04-02 08:33] VITALS: BP 138/79; PULSE 80; TEMP 97.8
[2017-04-02] MEDS ORDERED: DIVALPROEX SODIUM 500 MG TABLET E.C. PO SCH (10:00)
[2017-04-02] MEDS ORDERED: DOCUSATE SODIUM 100 MG CAPSULE (FP) PO SCH (10:00)
--- NOTE | 2017-04-02 14:44 | DS ---
Physical Examination Vital Signs: Vital Signs Temperature 36.6 C 04/02/17 08:32 Pulse Rate 80 04/02/17 08:32 Respiratory Rate 18 04/02/17 08:32 Blood Pressure 138/79 04/02/17 08:32 O2 Sat by Pulse Oximetry (%) 97 04/02/17 09:00 Constitutional: Yes: Well Nourished, No Distress, Calm Cardiovascular: Yes: Regular Rate and Rhythm. No: Gallop, Murmur, Rub Respiratory: Yes: Regular, CTA Bilaterally. No: Rales, Rhonchi, Wheezes Gastrointestinal: Yes: Normal Bowel Sounds, Soft. No: Distention, Tenderness Extremities: Yes: Other (leg in cast) Edema: No Labs: CBC, BMP 04/02/17 06:40 04/02/17 06:40 Discharge Summary Reason For Visit: FRACTURE OF TIBIA/FIBULA Current Active Problems Chronic low back pain (Acute) Closed fracture of right tibia and fibula (Acute) DVT prophylaxis (Acute) Fracture tibia/fibula (Acute) Frequent unifocal PVCs (Acute) Mood swings (Acute) Pre-op evaluation (Acute) Sickle cell trait (Acute) Hospital Course: (1) Closed fracture of right tibia and fibula Code(s): S82.201A - UNSP FRACTURE OF SHAFT OF RIGHT TIBIA, INIT FOR CLOS FX; S82.401A - UNSP FRACTURE OF SHAFT OF RIGHT FIBULA, INIT FOR CLOS FX Qualifiers: Encounter type: initial encounter Qualified Code(s): S82.201A - Unspecified fracture of shaft of right tibia, initial encounter for closed fracture; S82.401A - Unspecified fracture of shaft of right fibula, initial encounter for closed fracture; S82.401A - Unspecified fracture of shaft of right fibula, initial encounter for closed fracture (2) Sickle cell trait Code(s): D57.3 - SICKLE-CELL TRAIT (3) Chronic low back pain Code(s): M54.5 - LOW BACK PAIN; G89.29 - OTHER CHRONIC PAIN Mr De La Cruz is a very pleasant 62 year old male who comes in with closed fracture of his right tibia and fibula secondary to mechanical fall. He was admitted to the hospital and cleared medically and cardiac cohen. He underwent surgical repair and tolerated this well. Today he is up walking with crutches. There was discussion of possible rehabilitation but patient declined. He was seen by PT and was able to ascend/descend stairs. He will be sent out on lovenox for DVT PPx, he will be given a 30 day prescription and can follow up with orthopedic surgery at their discretion. He is safe for discharge home with Home PT. 32 minutes spent in preparation of this discharge Condition: Stable - Instructions Diet, Activity, Other Instructions: resume previous diet. Walk with crutches, home with home PT further physical therapy Referrals: Stalin Tafoya MD [Staff Physician] - Stalin Gonsales MD [Primary Care Provider] - Disposition: VNS/HOME HEALTH CARE - Home Medications Comprehensive Discharge Medication List: Ambulatory Orders Divalproex [Depakote -] 250 mg PO HS 03/29/17 Divalproex [Depakote -] 500 mg PO ONCE 03/29/17 Enoxaparin [Lovenox -] 40 mg SQ DAILY #30 disp.syrin 04/02/17
[2017-04-02] MEDS ORDERED: DIVALPROEX SODIUM 250 MG TABLET E.C. (FP) PO SCH (22:00)
== END 2017-04-02 15:05 | disposition home health service (06) | DRG 313 ==
LOC: JER 00:14 → JERBED 06:10 → UNDOADMIN 06:20 → J6S 07:43
PROVIDERS: ADMIT Internal Medicine; ATTEND Internal Medicine
PROC: 0QSG06Z Reposition Right Tibia with Intramedullary Internal Fixation Device, Open Approach (ICD-10-PCS; principal; 2017-04-01 14:00)
DX: S82.301A Unspecified fracture of lower end of right tibia, initial encounter for closed fracture (principal); W19.XXXA Unspecified fall, initial encounter; Y93.9 Activity, unspecified; Y92.89 Other specified places as the place of occurrence of the external cause; Y99.9 Unspecified external cause status; D57.3 Sickle-cell trait; M54.5 Low back pain; I49.3 Ventricular premature depolarization
CPT/HCPCS: 36415; 73110-TC-RT-FY; 73130-TC-RT-FY; 73502-TC-RT; 73552-TC-RT-FY; 73560-TC-RT-FY; 73590-TC-RT-FY; 73610-TC-RT-FY; 73630-TC-RT-FY; 73700-TC-RT; 76000-TC-FY; 80048; 80053; 82550; 82553; 83735; 84100; 84484; 85025; 85027; 85610; 86850; 86900; 86901; 90670; 90688; 90715; 93005; 93010; 93306-TC; 94760; 97116-GP; 97161-GP; 99282-25; J1644

== ENCOUNTER 2017-05-31 09:31 | Day surgery (SDC) | payer OTHER ==
[2017-05-30 10:11] VITALS: BMI 20.5
[2017-05-31 17:13] VITALS: PULSE 81; TEMP 98.2
[2017-05-31 17:15] VITALS: BP 118/67
== END 2017-05-31 16:45 | disposition home or self-care (01) ==
LOC: FASU 09:31
PROVIDERS: ATTEND Orthopaedic Surgery
PROC: 07DR3ZZ Extraction of Iliac Bone Marrow, Percutaneous Approach (ICD-10-PCS; principal; 2017-05-31)
PROC: 3E0A3GC Introduction of Other Therapeutic Substance into Bone Marrow, Percutaneous Approach (ICD-10-PCS; 2017-05-31)
PROC: 0QPG04Z Removal of Internal Fixation Device from Right Tibia, Open Approach (ICD-10-PCS; 2017-05-31)
DX: S82.301G Unspecified fracture of lower end of right tibia, subsequent encounter for closed fracture with delayed healing (principal); X58.XXXD Exposure to other specified factors, subsequent encounter
CPT/HCPCS: 76000-TC-FY; 88300-TC; 94760; J1644

== ENCOUNTER 2017-11-26 11:06 | Inpatient (IN) | payer OTHER ==
--- NOTE | 2017-11-26 11:21 | PDOC ---
History of Present Illness - General Stated Complaint: VOMITING BLOOD Time Seen by Provider: 11/26/17 11:21 - History of Present Illness Initial Comments: 69 year old male with PMH of sickle cell trait (one sickle crises 5 years prior) , chronic back pain (approximately once weekly oxycodone usage), mood disorder ( on depakote) and recent right tibial shaft IM gonzalo placement (05/31/17) presenting with day stools and dark red vomit for the past one week. Patient states that he had sudden onset vomiting and diarrhea one week prior without obvious inciting event. Describes his vomit as dark red and black with inability to tolerate PO. Describes his stools as dark and occasionally sticky in appearance. Denies any extended NSAID usage as he uses oxycodone for his pains. He does feel very weak and lethargic. His only abdominal surgery includes hernia repair. Denies any fevers, chills, chest pain, SOB, or other symptoms. 11/26/17 13:28 Past History - Past Medical History Allergies/Adverse Reactions: Allergies Allergy/AdvReac Type Severity Reaction Status Date / Time morphine Allergy Severe Vomiting Verified 11/26/17 12:08 Penicillins Allergy Intermediate Vomiting Verified 11/26/17 12:08 Home Medications: Ambulatory Orders Divalproex [Depakote -] 500 mg PO DAILY 03/29/17 Multivit-Min/FA/Lycopen/Lutein [Centrum Silver Tablet] 1 each PO DAILY 05/30/17 Oxycodone HCl [Oxycontin] 30 mg PO BID PRN 05/30/17 Folic Acid 1 mg PO DAILY 11/26/17 Anemia: (SICKLE CELL TRAIT) Asthma: No Cancer: No Cardiac Disorders: No CVA: No COPD: No CHF: No Dementia: No Diabetes: No GI Disorders: No Disorders: No HTN: No Hypercholesterolemia: Yes Liver Disease: No Seizures: No Thyroid Disease: No - Surgical History Abdominal Surgery: Yes (double hernia: 2001; hernia: 11/17/13) Appendectomy: No Cardiac Surgery: No (SURGERY AGAIN, YET IS "UPSET" AND IS REFUSING TO HAVE THIS DONE.) Cholecystectomy: No Lung Surgery: No Neurologic Surgery: No Orthopedic Surgery: Yes (Rt. Wrist, Rt. shoulder fx'-NO SURGERY) - Suicide/Smoking/Psychosocial Hx Smoking Status: No Smoking History: Former smoker Have you smoked in the past 12 months: Yes Number of Cigarettes Smoked Daily: 0 If you are a former smoker, when did you quit?: 1995 Cigars Per Day: 1 'Breaking Loose' booklet given: 03/29/17 Hx Alcohol Use: Yes (OCCASIONALLY) Drug/Substance Use Hx: Yes (MARIJUANA ON OCCASIONALLY, LAST USE 4 NIGHTS AGO) Substance Use Type: Alcohol, Marijuana Hx Substance Use Treatment: No Review of Systems - Review of Systems Constitutional: Yes: Loss of Appetite. No: Chills, Diaphoresis, Fever HEENTM: No: Eye Pain, Blurred Vision, Tearing, Recent change in vision, Double Vision Respiratory: No: Cough, Orthopnea, Shortness of Breath Cardiac (ROS): No: Chest Pain, Edema, Irregular Heart Rate ABD/GI: Yes: Diarrhea, Nausea, Poor Appetite, Poor Fluid Intake, Vomiting, Tarry Stools : No: Dysuria, Discharge, Frequency Musculoskeletal: Yes: Back Pain, Joint Pain, Muscle Pain. No: Joint Swelling Integumentary: No: Bruising, Lesions, Lumps, Pallor, Pruritus, Rash Neurological: No: Headache, Numbness, Paresthesia, Tingling Psychiatric: Yes: Emotional Problems, Mood Swings. No: Anxiety, Depression Hematologic/Lymphatic: No: Anemia, Blood Clots, Easy Bleeding, Easy Bruising, Bleeding Diathesis *Physical Exam - Physical Exam General Appearance: Yes: Appropriately Dressed, Thin, Other (Pale ). No: Nourished, Apparent Distress HEENT: positive: EOMI, SAEED, Normal Voice, Pale Conjunctivae. negative: Normal ENT Inspection Neck: positive: Trachea midline, Normal Thyroid, Supple. negative: Tender, Rigid Respiratory/Chest: positive: Lungs Clear, Normal Breath Sounds. negative: Chest Tender, Respiratory Distress, Accessory Muscle Use Cardiovascular: positive: Regular Rhythm, Regular Rate Gastrointestinal/Abdominal: positive: Normal Bowel Sounds, Tender (Diffuse mild abdominal tenderness) Rectal Exam: positive: normal rectal tone, melena, heme positive stool. negative: heme negative stool Musculoskeletal: positive: Normal Inspection ED Treatment Course - LABORATORY CBC & Chemistry Diagram: 11/26/17 12:00 11/26/17 12:00 Medical Decision Making - Medical Decision Making 69 year old male with dark red vomit and black stools for the past week. No history of excessive EtOH, NSAID usage, or other potential GI insult. This is concerning for upper GI bleed. Patient was originally slated to go to Tele after discussion with [employer] Michele but author we were concerned for chance of worsening UGB given his last episode of hematemesis was at 7:00 AM this morning and his acutely anemic. Discussed with resident Pink and they will take the patient. Patient has 2 PRBCs ordered. Mars sheetsked and consulted with Protonix running and NPO status. EKG (rate 89, MN 124, QRS 72, QTc 420, and normal axis wihout ST or t wave changes). 11/26/17 14:33 *DC/Admit/Observation/Transfer Diagnosis at time of Disposition: UGIB (upper gastrointestinal bleed) Anemia Qualifiers: Anemia type: unspecified type Qualified Code(s): D64.9 - Anemia, unspecified - Discharge Dispostion Condition at time of disposition: Stable Decision to Admit order: Yes - Referrals - Patient Instructions - Post Discharge Activity
[2017-11-26] MEDS ORDERED: ONDANSETRON 4 MG/2 ML VIAL IVPB ONE (11:27)
[2017-11-26] MEDS ORDERED: ONDANSETRON 4 MG/2 ML VIAL ONE (11:38)
[2017-11-26 12:11] LABS: BASO % 0.4 % (0-2.0); EOS % 0.5 % (0-4.5); HEMATOCRIT 20.1 % (35.4-49); LYMPH % 12.8 % (8-40); MCH 30.6 pg (25.7-33.7); MCHC 33.8 g/dl (32.0-35.9); MEAN CELL VOLUME 90.5 fl (80-96); MONO % 7.9 % (3.8-10.2); NEUT % 78.4 % (42.8-82.8); PLATELET COUNT 345 K/MM3 (134-434); RBC 2.22 M/mm3 (4.00-5.60); RETICULOCYTES 3.24 % (0.5-1.5); WHITE BLOOD COUNT 10.2 K/mm3 (4.0-10.0)
[2017-11-26 12:24] LABS: HEMOGLOBIN 6.8 GM/dL (11.7-16.9)
[2017-11-26 12:30] LABS: INR 1.03 (0.83-1.09); PROTHROMBIN TIME (PATIENT) 12.1 SEC (9.7-13.0)
[2017-11-26 12:37] LABS: ALBUMIN 2.6 g/dl (3.4-5.0); ALK PHOS 57 U/L (45-117); ANION GAP 3 MMOL/L (8-16); BILIRUBIN,TOTAL 0.2 mg/dL (0.2-1); BLOOD UREA NITROGEN 19 mg/dL (7-18); CHLORIDE 104 mmol/L (98-107); CO2 32 mmol/L (21-32); CREATININE 1.5 mg/dL (0.55-1.3); GLUCOSE,RANDOM 111 mg/dL (74-106); POTASSIUM 4.9 mmol/L (3.5-5.1); SGOT/AST 15 U/L (15-37); SGPT/ALT 16 U/L (13-61); SODIUM 138 mmol/L (136-145); TOT PROT 5.5 g/dl (6.4-8.2)
--- NOTE | 2017-11-26 13:57 | PDOC ---
Attending Attestation - Resident Resident Name: JaymeMadisonveronaedilberto - ED Attending Attestation I have performed the following: I have examined & evaluated the patient, The case was reviewed & discussed with the resident, I agree w/resident's findings & plan, Exceptions are as noted - HPI HPI: 11/26/17 13:52 Reviewed Residents HPI - Physicial Exam PE: 11/26/17 13:53 Reviewed Residents PE - Critical Care Time Total Critical Care Time: 35 Critical Care Statement: The care of this patient involved high complexity decision making to prevent further life threatening deterioration of the patient 's condition and/or to evaluate & treat vital organ system(s) failure or risk of failure. - Medical Decision Making 11/26/17 13:53 69 years old past medical history significant for high cholesterol presents to the ED with 2 week history of nausea vomiting dark stools Today noticed 1 episode of vomiting which looked dark red in color Mild epigastric discomfort on abdominal examination No fever no white count 6.8 guaiac positive black stool 2 units PRBCs ordered gastroenterology consult and will admit to medicine for further management.
[2017-11-26] MEDS ORDERED: ONDANSETRON 4 MG/2 ML VIAL IVPUSH PRN (14:22)
--- NOTE | 2017-11-26 14:25 | HP ---
Admitting History and Physical - Primary Care Physician PCP: Stalin Gonsales - Admission Chief Complaint: GIB History of Present Illness: is a 69 year old male who comes in with nausea, hematemesis and melena for 1.5 weeks. states pt has not been able to tolerate po due to n/v. Pt reports he was prescribed Naproxen around 2 weeks ago for leg pain, he took 2 pills which resulted in vomiting so he took one more and then stopped due to intolerance. Pt also reports taking 2 advils/day for headaches. He reports taking lacey-fili for epigastric pain with minimal improvement. He also reports accompanying symptoms of palpitations, headache, anorexia, fatigue, generalized weakness, reduced po intake, hiccups, and moderate aching epigastric abdominal pain. He has not had a colonoscopy/endoscopy in the past. Pt denies any chest pain, sob, unilateral weakness, fever/chills, heavy alcohol use. History Source: Patient, Family Member Limitations to Obtaining History: No Limitations - Past Medical History Heme/Onc: Yes: Sickle Cell Trait Psych: Yes: Other (Mood disorder) Musculoskeletal: Yes: Chronic low back pain, Osteoarthritis - Past Surgical History Past Surgical History: Yes: Hernia Repair (b/l inguinal, abdominal) Additional Past Surgical History: R tibia ORIF - Smoking History Smoking history: Current some day smoker Have you smoked in the past 12 months: Yes Aproximately how many cigarettes per day: 0 (cigar smoker ) If you are a former smoker, when did you quit?: 1994 - Alcohol/Substance Use Hx Alcohol Use: Yes (1-2x/month ) History of Substance Use: reports: None - Social History Usual Living Arrangement: Yes: With Spouse ADL: Independent History of Recent Travel: No Home Medications - Allergies Allergies/Adverse Reactions: Allergies Allergy/AdvReac Type Severity Reaction Status Date / Time morphine Allergy Severe Vomiting Verified 11/26/17 12:08 Penicillins Allergy Intermediate Vomiting Verified 11/26/17 12:08 - Home Medications Home Medications: Ambulatory Orders Divalproex [Depakote -] 500 mg PO DAILY 03/29/17 Multivit-Min/FA/Lycopen/Lutein [Centrum Silver Tablet] 1 each PO DAILY 05/30/17 Oxycodone HCl [Oxycontin] 30 mg PO BID PRN 05/30/17 Folic Acid 1 mg PO DAILY 11/26/17 Family Disease History - Family Disease History Family Disease History: Diabetes: Mother (HTN ), Heart Disease: Mother Physical Examination Vital Signs: Vital Signs Temperature 99 F 11/26/17 12:01 Pulse Rate 80 11/26/17 12:42 Respiratory Rate 18 11/26/17 12:42 Blood Pressure 100/68 11/26/17 12:42 O2 Sat by Pulse Oximetry (%) 100 11/26/17 12:01 Labs: CBC, BMP 11/26/17 12:00 11/26/17 12:00 Problem List - Problems (1) GIB (gastrointestinal bleeding) Assessment/Plan: Hematemesis, melena x 1.5 weeks symptomatic anemia suspect 2/2 NSAID/lacey-seltzer use tachycardic on admission, BP stable, hg/hct 6.8/20.1 prbcs 2 units ordered NPO, IVF PPI drip GI consult- aware ICU monitoring Code(s): K92.2 - GASTROINTESTINAL HEMORRHAGE, UNSPECIFIED Qualifiers: GI bleed type/associated pathology: unspecified gastrointestinal hemorrhage type Qualified Code(s): K92.2 - Gastrointestinal hemorrhage, unspecified (2) Hematemesis Assessment/Plan: as above zofran prn airway protection Code(s): K92.0 - HEMATEMESIS Qualifiers: Nausea presence: with nausea Qualified Code(s): K92.0 - Hematemesis (3) Melena Assessment/Plan: as above Code(s): K92.1 - MELENA (4) Acute blood loss anemia Assessment/Plan: as above monitor cbc Code(s): D62 - ACUTE POSTHEMORRHAGIC ANEMIA (5) MAGGIE (acute kidney injury) Assessment/Plan: 2/2 dehydration, gib IVF monitor Code(s): N17.9 - ACUTE KIDNEY FAILURE, UNSPECIFIED (6) Mood disorder Assessment/Plan: stable hold depakote in the acute period Code(s): F39 - UNSPECIFIED MOOD [AFFECTIVE] DISORDER Assessment/Plan 35 minutes spent in reviewing, and formulating plan
[2017-11-26] MEDS ORDERED: SODIUM CHLORIDE 1,000 ML IV SCH (14:30)
[2017-11-26] MEDS: PANTOPRAZOLE SODIUM 80 MG in SODIUM CHLORIDE 100 ML IVPB SCH (15:11)
--- NOTE | 2017-11-26 15:34 | CONSULT ---
Consultation: REQUESTING PROVIDER: Dr Varner CONSULT REQUEST: We have been asked to medically evaluate this patient for admission to the ICU. HISTORY OF PRESENT ILLNESS: Familia De La Cruz is a 69yo man with a PMH of HLD, sickle trait, unknown mood disorder (on depakote), back pain, recent RLE fracture s/p surgical repair who presented to the ED today with two weeks of melena, LUQ abdominal pain, and hematemesis. He report that he was prescribed naproxen about 2.5 weeks ago for pain in his back and leg. He states that he tried to take it twice and felt nauseated so stopped taking it. However, he also says that he took Aleve (over the counter) several times. Mr De La Cruz says that starting two weeks ago he noticed loose, black, sticky stool. About 1.5 weeks ago, he also had pain in the left upper abdomen. He denies any heartburn and is unable to state whether the pain worsens or improves with eating. Then, about a week ago, he started having episodes of vomiting that he says were bloody and dark in color. He has been unable to eat normally due to the emesis and pain. Mr De La Cruz also says that he has been very tired and has felt lightheaded recently , especially when standing, so that he "can hardly walk anymore." He has not noticed any SOB, chest pain, fever, changes in mental status, and he denies fainting. He has never had a colonoscopy or EGD that he knows of. His ED course was notable for a hgb of 6.8, guiac positive stool. He was initially tachycardic and mildly hypotensive but improved with IVF. Two units of blood were ordered, he was started on a pantoprazole drip and was made NPO. The ICU was contacted to evaluate for admission. REVIEW OF SYSTEMS: General: No fevers, no chills, no weight or appetite change, no malaise HEENT: No changes in vision, no changes in hearing, no congestion, no sore throat CV: No chest pain, no palpitations, no LE edema. +Lightheaded/orthostatic Pulm: No SOB, no cough, no wheezing GI: See HPI : No frequency, no urgency, no dysuria. h/o BPH? Musc: +back pain, +RLE fracture recently w/ continued pain Skin: No rash, no lesions, no erythema Endo: No excessive thirst, no heat/cold intolerance Heme: No unusual bruising or bleeding, no swollen glands Neuro: No syncope, no numbness/tingling, no focal weakness Vasc: No claudication Psych: No recent change in mood, no SI or HI PHYSICAL EXAMINATION Vital Signs - 24 hr 11/26/17 11/26/17 11/26/17 11:25 12:01 12:42 Temperature 99 F 99 F Pulse Rate 92 H Pulse Rate [ 92 H 80 Left Apical] Respiratory 20 20 18 Rate Blood Pressure 108/67 Blood Pressure 108/67 100/68 [Left Arm] O2 Sat by Pulse 100 100 Oximetry (%) General: Comfortable, no acute distress HEENT: PERRL, EOMI, MMM, voice normal, normal neck ROM, no LAD Cards: RRR, no murmur appreciated Pulm: Comfortable on room air, clear to auscultation bilaterally Abd: Soft, nondistended. Epigastric and LUQ tenderness to palpation : No CVA tenderness Ext: Atraumatic. No LE edema. ROM intact. Strength 5/5 and equal bilaterally Vasc: Extremities WWP Skin: Normal color, no rashes or lesions Neuro: A&Ox3, CN grossly intact, normal speech, motor/sensory grossly intact and symmetric Psych: Mood appropriate to situation Laboratory Results - last 24 hr 11/26/17 11/26/17 11/26/17 12:00 12:00 12:00 WBC 10.2 H RBC 2.22 L Hgb 6.8 L* Hct 20.1 L D MCV 90.5 MCH 30.6 MCHC 33.8 RDW 15.0 D Plt Count 345 D MPV 7.0 L D Absolute Neuts (auto) 8.0 Neutrophils % 78.4 Lymphocytes % 12.8 Monocytes % 7.9 Eosinophils % 0.5 D Basophils % 0.4 Nucleated RBC % 0 Retic Count 3.24 H PT with INR 12.10 INR 1.03 Sodium Potassium Chloride Carbon Dioxide Anion Gap BUN Creatinine Creat Clearance w eGFR Random Glucose Lactic Acid Calcium Total Bilirubin AST ALT Alkaline Phosphatase Total Protein Albumin Stool Occult Blood Positive Blood Type Antibody Screen Crossmatch 11/26/17 11/26/17 11/26/17 12:00 12:01 12:39 WBC RBC Hgb Hct MCV MCH MCHC RDW Plt Count MPV Absolute Neuts (auto) Neutrophils % Lymphocytes % Monocytes % Eosinophils % Basophils % Nucleated RBC % Retic Count PT with INR INR Sodium 138 Potassium 4.9 Chloride 104 Carbon Dioxide 32 Anion Gap 3 L BUN 19 H Creatinine 1.5 H Creat Clearance w eGFR 46.27 Random Glucose 111 H Lactic Acid 1.1 Calcium 8.0 L Total Bilirubin 0.2 AST 15 ALT 16 Alkaline Phosphatase 57 Total Protein 5.5 L Albumin 2.6 L Stool Occult Blood Blood Type Antibody Screen Crossmatch See Detail 11/26/17 14:01 WBC RBC Hgb Hct MCV MCH MCHC RDW Plt Count MPV Absolute Neuts (auto) Neutrophils % Lymphocytes % Monocytes % Eosinophils % Basophils % Nucleated RBC % Retic Count PT with INR INR Sodium Potassium Chloride Carbon Dioxide Anion Gap BUN Creatinine Creat Clearance w eGFR Random Glucose Lactic Acid Calcium Total Bilirubin AST ALT Alkaline Phosphatase Total Protein Albumin Stool Occult Blood Blood Type O POSITIVE Antibody Screen Negative Crossmatch See Detail Active Medications Generic Name Dose Route Start Last Admin Trade Name Freq PRN Reason Stop Dose Admin Chlorhexidine Gluconate 1 applic 11/26/17 22:00 Hibiclens For Decolonization - TP HS JAY Chlorhexidine Gluconate 1 applic 11/26/17 22:00 Hibiclens For Decolonization - TP HS JAY Pantoprazole Sodium 80 mg/ 100 mls @ 10 mls/hr 11/26/17 13:30 11/26/17 15:11 Sodium Chloride IVPB 10 mls/hr Q10H JAY Administration 8 MG/HR Mupirocin 1 applic 11/26/17 22:00 Bactroban Ointment (For Decolonization) - NS 12/01/17 21:59 BID JAY Mupirocin 1 applic 11/26/17 22:00 Bactroban Ointment (For Decolonization) - NS 12/01/17 21:59 BID JAY Ondansetron HCl 4 mg 11/26/17 14:22 Zofran Injection IVPUSH Q6H PRN NAUSEA AND/OR VOMITING ASSESSMENT/PLAN: Familia De La Cruz is a 69yo man with a PMH of sickle trait, HLD, unknown mood disorder , back pain, recent RLE fracture with surgical repair who presents with symptomatic anemia to 6.8 due to GI bleed with hematemesis and melena for two weeks. Neuro: - Reports back and RLE pain - Avoid NSAIDs for pain control - On oxycodone at home; not ordered at this time. Will monitor CV: - Hypotensive, orthostatic in the setting of acute blood loss anemia - Continuous cardiac monitoring - Hypotension responsive to fluids; continue IVF Pulm: - No issues, on room air - IS 10x per hour Heme: - Acute blood loss anemia to 6.8 - 2u RBCs ordered for transfusion - Post-transfusion CBC ordered - Monitor daily CBC GI: - h/o hematemesis and melena - NPO due to GI bleed - Pantoprazole drip - Dr Hodge consulted Renal: - MAGGIE noted on admission labs. May be due to dehydration secondary to acute bleeding - Urine lytes, UA pending - Monitor I/O ID: - No issues Endo: - No issues Psych: - h/o mood disorder - Holding home depakote while NPO Musc: - OOB as tolerated PPx: - SCD's, no heparin or lovenox given GI bleed - Pantoprazole drip FEN: - NPO - NS @125 - Replete lytes PRN Dispo: - Monitor in ICU Discussed with Dr Catalan. Stephanie Vera PGY1 Visit type - Emergency Visit Emergency Visit: Yes ED Registration Date: 11/26/17 Care time: The patient presented to the Emergency Department on the above date and was hospitalized for further evaluation of their emergent condition. - New Patient This patient is new to me today: Yes Date on this admission: 11/26/17 - Critical Care Critical Care patient: Yes Total Critical Care Time (in minutes): 45 Critical Care Statement: The care of this patient involved high complexity decision making to prevent further life threatening deterioration of the patient 's condition and/or to evaluate & treat vital organ system(s) failure or risk of failure.
[2017-11-26] MEDS ORDERED: ACETAMINOPHEN 1000 MG/100 ML VIAL (NON FORMULARY) IVPB ONE (15:45)
[2017-11-26] MEDS ORDERED: ACETAMINOPHEN INJECTION 100 ML IVPB ONE (15:49)
[2017-11-26] MEDS: SODIUM CHLORIDE 1,000 ML IV SCH (16:30)
[2017-11-26 20:25] LABS: BASO % 0.4 % (0-2.0); EOS % 0.7 % (0-4.5); HEMATOCRIT 21.1 % (35.4-49); LYMPH % 11.6 % (8-40); MCH 29.9 pg (25.7-33.7); MCHC 33.1 g/dl (32.0-35.9); MEAN CELL VOLUME 90.2 fl (80-96); MEAN PLT VOLUME 6.7 fl (7.5-11.1); MONO % 7.8 % (3.8-10.2); NEUT % 79.5 % (42.8-82.8); PLATELET COUNT 324 K/MM3 (134-434); RBC 2.33 M/mm3 (4.00-5.60); RDW 14.8 % (11.9-15.9); WHITE BLOOD COUNT 10.1 K/mm3 (4.0-10.0)
[2017-11-26 20:39] LABS: URINE APPEARANCE CLEAR; URINE BILIRUBIN NEGATIVE (<2.0 mg/dL); URINE COLOR LTYELLOW; URINE GLUCOSE (UA) NEGATIVE (NEGATIVE); URINE KETONE NEGATIVE (NEGATIVE); URINE LEUK ESTERASE NEGATIVE (NEGATIVE); URINE NITRITE NEGATIVE (NEGATIVE); URINE PROTEIN NEGATIVE (NEGATIVE); URINE UROBILINOGEN NEGATIVE mg/dL (0.2-1.0)
--- NOTE | 2017-11-26 20:58 | CON.GI ---
Consult Consult Specialty:: Gastroenterology Referred by:: Zoie Bautista NP Reason for Consultation:: GI bleed - History of Present Illness Chief Complaint: Hematemesis and melena for 1 week History of Present Illness: 69M has been taking Ibuprofen almost daily since suffering a right tib/fib fracture in 04/07 that required a gonzalo. He required an iliac crest graft on when the tibial bone failed to heal. About a week ago he took Naprosyn 500mg x 3 tabs after which he noted melena and then developed hematemesis. He finally came in for weakness today and is found to have Hb of 6. He denies any previous h/o GI bleeding. He has never has had an EGD or a colonoscopy. No FH of GI cancer. No pasr GI problems. - History Source History Provided By: Patient Limitations to Obtaining History: No Limitations - Past Medical History Cardio/Vascular: Yes: HTN (treated in elo past), Other (PVCs) Renal/: Yes: BPH Heme/Onc: Yes: Sickle Cell Disease (sicke cell trait) Psych: Yes: Other (Mood disorder) Musculoskeletal: Yes: Chronic low back pain, Osteoarthritis - Past Surgical History Past Surgical History: Yes: Hernia Repair (RIH, LIH with mesh and umbilical) Additional Surgical History: left tibia-fibula frature surgery with gonzalo and later bone graft - Alcohol/Substance Use Hx Alcohol Use: Yes (1-2x/month ) History of Substance Use: reports: None - Smoking History Smoking history: Current some day smoker Have you smoked in the past 12 months: Yes Aproximately how many cigarettes per day: 0 (cigar smoker ) If you are a former smoker, when did you quit?: 1994 - Social History Usual Living Arrangement: With Spouse ADL: Independent Occupation: retired moving company owner spa director Place of : [facility] ([place]) History of Recent Travel: No Home Medications - Allergies Allergies/Adverse Reactions: Allergies Allergy/AdvReac Type Severity Reaction Status Date / Time morphine Allergy Severe Vomiting Verified 11/26/17 12:08 Penicillins Allergy Intermediate Vomiting Verified 11/26/17 12:08 - Home Medications Home Medications: Ambulatory Orders Divalproex [Depakote -] 500 mg PO DAILY 03/29/17 Multivit-Min/FA/Lycopen/Lutein [Centrum Silver Tablet] 1 each PO DAILY 05/30/17 Oxycodone HCl [Oxycontin] 30 mg PO BID PRN 05/30/17 Folic Acid 1 mg PO DAILY 11/26/17 Family Disease History - Family Disease History Family Disease History: Diabetes: Mother (HTN, sickle cell disease ), Heart Disease: Mother Review of Systems - Review of Systems Constitutional: reports: Loss of Appetite, Unintentional Wgt. Loss, Weakness Eyes: reports: No Symptoms HENT: reports: No Symptoms Neck: reports: No Symptoms Cardiovascular: reports: No Symptoms Gastrointestinal: reports: Melena, Vomiting Blood Genitourinary: reports: No Symptoms Musculoskeletal: reports: Back Pain, Joint Pain Physical Exam-GI Vital Signs: Vital Signs Temperature 98.9 F 11/26/17 19:26 Pulse Rate 82 11/26/17 19:26 Respiratory Rate 20 11/26/17 19:26 Blood Pressure 104/69 11/26/17 19:26 O2 Sat by Pulse Oximetry (%) 99 11/26/17 19:26 CBC,CMP WBC 10.1 K/mm3 (4.0-10.0) H 11/26/17 20:20 RBC 2.33 M/mm3 (4.00-5.60) L 11/26/17 20:20 Hgb 7.0 GM/dL (11.7-16.9) L 11/26/17 20:20 Hct 21.1 % (35.4-49) L 11/26/17 20:20 MCV 90.2 fl (80-96) 11/26/17 20:20 MCH 29.9 pg (25.7-33.7) 11/26/17 20:20 MCHC 33.1 g/dl (32.0-35.9) 11/26/17 20:20 RDW 14.8 % (11.9-15.9) 11/26/17 20:20 Plt Count 324 K/MM3 (134-434) 11/26/17 20:20 MPV 6.7 fl (7.5-11.1) L 11/26/17 20:20 Absolute Neuts (auto) 8.0 K/mm3 (1.5-8.0) 11/26/17 20:20 Neutrophils % 79.5 % (42.8-82.8) 11/26/17 20:20 Lymphocytes % 11.6 % (8-40) 11/26/17 20:20 Monocytes % 7.8 % (3.8-10.2) 11/26/17 20:20 Eosinophils % 0.7 % (0-4.5) 11/26/17 20:20 Basophils % 0.4 % (0-2.0) 11/26/17 20:20 Nucleated RBC % 0 % (0-0) 11/26/17 20:20 Retic Count 3.24 % (0.5-1.5) H 11/26/17 12:00 Sodium 138 mmol/L (136-145) 11/26/17 12:00 Potassium 4.9 mmol/L (3.5-5.1) 11/26/17 12:00 Chloride 104 mmol/L (98-107) 11/26/17 12:00 Carbon Dioxide 32 mmol/L (21-32) 11/26/17 12:00 Anion Gap 3 MMOL/L (8-16) L 11/26/17 12:00 BUN 19 mg/dL (7-18) H 11/26/17 12:00 Creatinine 1.5 mg/dL (0.55-1.3) H 11/26/17 12:00 Creat Clearance w eGFR 46.27 (>60) 11/26/17 12:00 Random Glucose 111 mg/dL (74-106) H 11/26/17 12:00 Lactic Acid 1.1 mmol/L (0.4-2.0) 11/26/17 12:01 Calcium 8.0 mg/dL (8.5-10.1) L 11/26/17 12:00 Total Bilirubin 0.2 mg/dL (0.2-1) 11/26/17 12:00 AST 15 U/L (15-37) 11/26/17 12:00 ALT 16 U/L (13-61) 11/26/17 12:00 Alkaline Phosphatase 57 U/L (45-117) 11/26/17 12:00 Total Protein 5.5 g/dl (6.4-8.2) L 11/26/17 12:00 Albumin 2.6 g/dl (3.4-5.0) L 11/26/17 12:00 Current Medications Generic Name Dose Route Start Last Admin Trade Name Freq PRN Reason Stop Dose Admin Chlorhexidine Gluconate 1 applic 10/09/18 22:00 Hibiclens For Decolonization - TP HS JAY Pantoprazole Sodium 80 mg/ 100 mls @ 10 mls/hr 11/26/17 13:30 11/26/17 15:11 Sodium Chloride IVPB 10 mls/hr Q10H JAY Administration 8 MG/HR Sodium Chloride 1,000 mls @ 125 mls/hr 11/26/17 15:33 11/26/17 16:30 Normal Saline - IV 125 mls/hr ASDIR JAY Administration Mupirocin 1 applic 11/26/17 22:00 Bactroban Ointment (For Decolonization) - NS 12/01/17 21:59 BID JAY Ondansetron HCl 4 mg 11/26/17 14:22 Zofran Injection IVPUSH Q6H PRN NAUSEA AND/OR VOMITING Constitutional: Yes: Calm Eyes: Yes: Conjunctiva Clear HENT: Yes: Normocephalic Neck: Yes: Trachea Midline Cardiovascular: Yes: Regular Rate and Rhythm Respiratory: Yes: CTA Bilaterally Gastrointestinal Inspection: Yes: Scars (RIH and LIH and umbilical incisions with LIH mesh palpable) ...Auscultate: Yes: Normoactive Bowel Sounds ...Palpate: Yes: Soft, Other (nontender) ...Rectal Exam: Yes: Guaiac Positive (balck strongly guaiaic positive stool, 2+ prostate) Edema: No Peripheral Pulses WNL: Yes Neurological: Yes: Facial Droop Labs: CBC, BMP 11/26/17 20:20 11/26/17 12:00 INR, PTT INR 1.03 (0.83-1.09) 11/26/17 12:00 Problem List - Problems (1) GIB (gastrointestinal bleeding) Assessment/Plan: Suspect NSAID ulcer or erosions bleeding. I have advised an EGD and discussed the procedure in detail including informing the patient of the potential for such complications as perforation and hemorrhage. He has granted an informed consent. I have scheduled it for the AM to allow for transfusions and stabilization. Continue PPI drip in the interim. Colonoscopy will be discussed at the appropriate time. Code(s): K92.2 - GASTROINTESTINAL HEMORRHAGE, UNSPECIFIED Qualifiers: GI bleed type/associated pathology: unspecified gastrointestinal hemorrhage type Qualified Code(s): K92.2 - Gastrointestinal hemorrhage, unspecified (2) BPH (benign prostatic hyperplasia) Code(s): N40.0 - BENIGN PROSTATIC HYPERPLASIA WITHOUT LOWER URINRY TRACT SYMP (3) Anemia Code(s): D64.9 - ANEMIA, UNSPECIFIED Qualifiers: Anemia type: unspecified type Qualified Code(s): D64.9 - Anemia, unspecified (4) Hematemesis Code(s): K92.0 - HEMATEMESIS Qualifiers: Nausea presence: with nausea Qualified Code(s): K92.0 - Hematemesis (5) Melena Code(s): K92.1 - MELENA
[2017-11-26] MEDS ORDERED: MUPIROCIN 2% TOPICAL OINTMENT FOR DECOLONIZATION NS SCH (22:00)
[2017-11-26] MEDS ORDERED: CHLORHEXIDINE GLUCONATE 4% CLEANSER FOR DECOLONIZATION TP SCH (22:00)
[2017-11-27] MEDS: PANTOPRAZOLE SODIUM 80 MG in SODIUM CHLORIDE 100 ML IVPB SCH (00:09)
[2017-11-27] MEDS ORDERED: PANTOPRAZOLE SODIUM 40 MG VIAL ONE (00:10)
[2017-11-27 00:42] VITALS: BMI 18.6
[2017-11-27] MEDS: SODIUM CHLORIDE 1,000 ML IV SCH ×2 (00:42→10:08)
[2017-11-27] MEDS ORDERED: ONDANSETRON 4 MG/2 ML VIAL IVPUSH PRN ×2 (00:43→20:20)
[2017-11-27 06:38] LABS: BASO % 0.3 % (0-2.0); EOS % 1.1 % (0-4.5); HEMATOCRIT 23.8 % (35.4-49); HEMOGLOBIN 8.1 GM/dL (11.7-16.9); LYMPH % 10.8 % (8-40); MCH 30.4 pg (25.7-33.7); MCHC 33.9 g/dl (32.0-35.9); MEAN CELL VOLUME 89.5 fl (80-96); MEAN PLT VOLUME 7.1 fl (7.5-11.1); MONO % 7.5 % (3.8-10.2); NEUT % 80.3 % (42.8-82.8); PLATELET COUNT 262 K/MM3 (134-434); RBC 2.65 M/mm3 (4.00-5.60); WHITE BLOOD COUNT 9.2 K/mm3 (4.0-10.0)
[2017-11-27 08:10] LABS: ALK PHOS 49 U/L (45-117); ANION GAP 3 MMOL/L (8-16); BILIRUBIN,TOTAL 0.5 mg/dL (0.2-1); BLOOD UREA NITROGEN 11 mg/dL (7-18); CHLORIDE 115 mmol/L (98-107); CO2 26 mmol/L (21-32); GLUCOSE,RANDOM 78 mg/dL (74-106); MAGNESIUM 2.1 mg/dL (1.8-2.4); PHOSPHOROUS 3.2 mg/dL (2.5-4.9); POTASSIUM 4.6 mmol/L (3.5-5.1); SGOT/AST 13 U/L (15-37); SGPT/ALT 11 U/L (13-61); SODIUM 144 mmol/L (136-145); TOT PROT 4.2 g/dl (6.4-8.2)
[2017-11-27 09:28] LABS: CALCIUM 6.7 mg/dL (8.5-10.1)
[2017-11-27] MEDS ORDERED: PANTOPRAZOLE SODIUM 80 MG in SODIUM CHLORIDE 100 ML IVPB SCH (09:30)
--- NOTE | 2017-11-27 09:57 | EKG ---
Test Reason : Blood Pressure : / mmHG Vent. Rate : 089 BPM Atrial Rate : 089 BPM P-R Int : 124 ms QRS Dur : 072 ms QT Int : 346 ms P-R-T Axes : 056 058 -57 degrees QTc Int : 420 ms NORMAL SINUS RHYTHM WITH SINUS ARRHYTHMIA NONSPECIFIC T WAVE ABNORMALITY ABNORMAL ECG WHEN COMPARED WITH ECG OF 31-MAR-2017 10:48, PREMATURE VENTRICULAR COMPLEXES ARE NO LONGER PRESENT Confirmed by RODOLFO BORJAS, LUIS ([id number]) on 11/27/2017 9:57:09 AM Referred By: Confirmed By:LUIS REYNOLDS MD
[2017-11-27] MEDS ORDERED: MUPIROCIN 2% TOPICAL OINTMENT FOR DECOLONIZATION NS SCH (10:00)
[2017-11-27] MEDS ORDERED: PANTOPRAZOLE SODIUM 160 MG in DEXTROSE 5%-WATER - 290 ML IVPB SCH ×2 (10:00→22:37)
[2017-11-27] MEDS ORDERED: PNEUMOC 13-VAL CONJ-DIP CRM/PF 0.5 ML DISP.SYRIN IM ONE (10:00)
[2017-11-27] MEDS ORDERED: FLU VACCINE QUAD 60 MCG/0.5 ML (MDV 18-19) IM ONE (10:00)
[2017-11-27] MEDS ORDERED: TETRACAINE/BENZOCAINE/BUTAMBEN 20 GM SPR TP ONE (11:00)
--- NOTE | 2017-11-27 11:08 | PN ---
Progress Note, Physician Chief Complaint: Pt lying in bed in no acute distress. Reports feeling better today, heart palpitations/headache resolved. Denies any chest pain, sob, n/v/d - Current Medication List Current Medications: Active Medications Chlorhexidine Gluconate (Hibiclens For Decolonization -) 1 applic TP HS JAY Sodium Chloride (Normal Saline -) 1,000 mls @ 125 mls/hr IV ASDIR JAY Last Admin: 11/27/17 10:08 Dose: 125 mls/hr Pantoprazole Sodium 160 mg/ (Dextrose) 290 mls @ 14.5 mls/hr IVPB Q20H JAY Last Admin: 11/27/17 10:42 Dose: 14.5 mls/hr Mupirocin (Bactroban Ointment (For Decolonization) -) 1 applic NS BID [facility] Stop: 12/02/17 09:59 Last Admin: 11/27/17 10:08 Dose: 1 applic Ondansetron HCl (Zofran Injection) 4 mg IVPUSH Q6H PRN PRN Reason: NAUSEA AND/OR VOMITING Last Admin: 11/27/17 02:00 Dose: 4 mg - Objective Vital Signs: Vital Signs Temperature 98.3 F 11/27/17 05:00 Pulse Rate 64 11/27/17 09:00 Respiratory Rate 21 H 11/27/17 09:00 Blood Pressure 116/75 11/27/17 09:00 O2 Sat by Pulse Oximetry (%) 100 11/27/17 07:20 Constitutional: Yes: Well Nourished, No Distress, Calm Cardiovascular: Yes: WNL, Regular Rate and Rhythm Respiratory: Yes: WNL, Regular, CTA Bilaterally. No: Accessory Muscle Use, Rhonchi, SOB, Tachypnea, Wheezes Gastrointestinal: Yes: WNL, Normal Bowel Sounds, Soft. No: Distention, Tenderness Genitourinary: Yes: WNL Edema: No Neurological: Yes: WNL, Alert, Oriented Psychiatric: Yes: WNL, Alert, Oriented Labs: CBC, BMP 11/27/17 05:30 11/27/17 05:30 INR, PTT INR 1.03 (0.83-1.09) 11/26/17 12:00 Problem List - Problems (1) GIB (gastrointestinal bleeding) Code(s): K92.2 - GASTROINTESTINAL HEMORRHAGE, UNSPECIFIED Qualifiers: GI bleed type/associated pathology: unspecified gastrointestinal hemorrhage type Qualified Code(s): K92.2 - Gastrointestinal hemorrhage, unspecified (2) Hematemesis Code(s): K92.0 - HEMATEMESIS Qualifiers: Nausea presence: with nausea Qualified Code(s): K92.0 - Hematemesis (3) Melena Code(s): K92.1 - MELENA (4) Acute blood loss anemia Code(s): D62 - ACUTE POSTHEMORRHAGIC ANEMIA (5) MAGGIE (acute kidney injury) Code(s): N17.9 - ACUTE KIDNEY FAILURE, UNSPECIFIED (6) Mood disorder Code(s): F39 - UNSPECIFIED MOOD [AFFECTIVE] DISORDER (7) Hypocalcemia Code(s): E83.51 - HYPOCALCEMIA Assessment/Plan (1) GIB (gastrointestinal bleeding) Assessment/Plan: improved, hemodynamically stable s/p egd- revealed 2 large gastric antrum ulcers w/out bleeding hg/hct stable s/p 3 units prbcs cbc q 12 hrs clear liquid diet PPI drip GI following ICU monitoring Code(s): K92.2 - GASTROINTESTINAL HEMORRHAGE, UNSPECIFIED Qualifiers: GI bleed type/associated pathology: unspecified gastrointestinal hemorrhage type Qualified Code(s): K92.2 - Gastrointestinal hemorrhage, unspecified (2) Hematemesis Assessment/Plan: as above zofran prn airway protection Code(s): K92.0 - HEMATEMESIS Qualifiers: Nausea presence: with nausea Qualified Code(s): K92.0 - Hematemesis (3) Melena Assessment/Plan: as above Code(s): K92.1 - MELENA (4) Acute blood loss anemia Assessment/Plan: as above monitor cbc Code(s): D62 - ACUTE POSTHEMORRHAGIC ANEMIA (5) MAGGIE (acute kidney injury) Assessment/Plan: improved encourage po intake Code(s): N17.9 - ACUTE KIDNEY FAILURE, UNSPECIFIED (6) Hypocalcemia Assessment/Plan: corrected ca 8.2 monitor for now Code(s): E83.51 - HYPOCALCEMIA (7) Mood disorder Assessment/Plan: stable continue depakote Code(s): F39 - UNSPECIFIED MOOD [AFFECTIVE] DISORDER Assessment/Plan 35 minutes spent in reviewing, and formulating plan Agree with ICU attending's plan
--- NOTE | 2017-11-27 12:15 | PN ---
Progress Note (short form) - Note Progress Note: GI Procedure NOte> Please see EGD report. Two large gastric antrum ulcers found. No bleeding at this time. I advised repeat EGD in 3 months. Continue PPI drip. Problem List - Problems (1) GIB (gastrointestinal bleeding) Code(s): K92.2 - GASTROINTESTINAL HEMORRHAGE, UNSPECIFIED Qualifiers: GI bleed type/associated pathology: unspecified gastrointestinal hemorrhage type Qualified Code(s): K92.2 - Gastrointestinal hemorrhage, unspecified (2) BPH (benign prostatic hyperplasia) Code(s): N40.0 - BENIGN PROSTATIC HYPERPLASIA WITHOUT LOWER URINRY TRACT SYMP (3) Anemia Code(s): D64.9 - ANEMIA, UNSPECIFIED Qualifiers: Anemia type: unspecified type Qualified Code(s): D64.9 - Anemia, unspecified (4) Hematemesis Code(s): K92.0 - HEMATEMESIS Qualifiers: Nausea presence: with nausea Qualified Code(s): K92.0 - Hematemesis (5) Melena Code(s): K92.1 - MELENA
--- NOTE | 2017-11-27 13:01 | PN ---
Teaching Attending Note Name of Resident: Stephanie Vera ATTENDING PHYSICIAN STATEMENT I saw and evaluated the patient. I reviewed the resident's note and discussed the case with the resident. I agree with the resident's findings and plan as documented. SUBJECTIVE: Pt seen and examined in the ICU. s/p EGD showing 2 large antral ulcers nonbleeding and no visible vessels. No bowel movements overnight. H/H responded appropriately to transfusions. OBJECTIVE: Vital Signs Period Temp Pulse Resp BP Sys/Connell Pulse Ox Last 24 Hr 98.3 F-99.1 F 57-82 14-22 98-129/48-75 97-100 Intake & Output 11/24/17 11/25/17 11/26/17 11/27/17 23:59 23:59 23:59 23:59 Intake Total 350 1275 Output Total 1200 Balance 350 75 Weight 59.024 kg 59.024 kg Gen: NAD at rest Heart: RRR Lung: decreased breath sounds at the bases Abd: soft, nontender Ext: no edema CBC, BMP 11/27/17 05:30 11/27/17 05:30 Active Medications Al Hydroxide/Mg Hydroxide (Mylanta Oral Suspension -) 30 ml PO Q6HPO JAY Chlorhexidine Gluconate (Hibiclens For Decolonization -) 1 applic TP HS JAY Sodium Chloride (Normal Saline -) 1,000 mls @ 125 mls/hr IV ASDIR AJY Last Admin: 11/27/17 10:08 Dose: 125 mls/hr Pantoprazole Sodium 160 mg/ (Dextrose) 290 mls @ 14.5 mls/hr IVPB Q20H JAY Last Admin: 11/27/17 10:42 Dose: 14.5 mls/hr Mupirocin (Bactroban Ointment (For Decolonization) -) 1 applic NS BID JAY Stop: 12/02/17 09:59 Last Admin: 11/27/17 10:08 Dose: 1 applic Ondansetron HCl (Zofran Injection) 4 mg IVPUSH Q6H PRN PRN Reason: NAUSEA AND/OR VOMITING Last Admin: 11/27/17 02:00 Dose: 4 mg ASSESSMENT AND PLAN: GI Bleed from antral ulcers/NSAID use Acute Blood Loss Anemia Hyperlipidemia Sickle Trait - monitor H/H - continue protonix - clears per GI - can decrease IVF rate - DVT prophylaxis - can monitor on floor
[2017-11-27] MEDS ORDERED: PT OWN MED DRAWER 7, Y5N ONE (13:31)
[2017-11-27] MEDS: MAG HYDROX/AL HYDROX/SIMETH 30 ML UNIT-DOSE CUP PO SCH ×2 (13:48→18:44)
--- NOTE | 2017-11-27 13:57 | PN ---
Physical Exam: SUBJECTIVE: - Admitted from ED for upper GI bleed with melena and hematochezia - Hgb 6.8 on admission - 3u RBCs transfused overnight with increase in hgb to 8.1 - Taken for EGD this morning. No active bleeding but gastric ulcers noted - Started on clear liquid diet per GI recommendation OBJECTIVE: Vital Signs Period Temp Pulse Resp BP Sys/Connell Pulse Ox Last 24 Hr 98.3 F-99.1 F 57-82 14-22 98-129/48-75 97-100 General: Comfortable, no acute distress HEENT: PERRL, EOMI, MMM, voice normal, normal neck ROM, no LAD Cards: RRR, no murmur appreciated Pulm: Comfortable on room air, clear to auscultation bilaterally Abd: Soft, nondistended. Epigastric and LUQ tenderness to palpation Ext: Atraumatic. No LE edema. ROM intact. Strength 5/5 and equal bilaterally Vasc: Extremities WWP Skin: Normal color, no rashes or lesions Neuro: A&Ox3, CN grossly intact, normal speech, motor/sensory grossly intact and symmetric Psych: Mood appropriate to situation Laboratory Results - last 24 hr 11/26/17 11/26/17 11/26/17 14:01 20:20 20:26 WBC 10.1 H RBC 2.33 L Hgb 7.0 L Hct 21.1 L MCV 90.2 MCH 29.9 MCHC 33.1 RDW 14.8 Plt Count 324 MPV 6.7 L Absolute Neuts (auto) 8.0 Neutrophils % 79.5 Lymphocytes % 11.6 Monocytes % 7.8 Eosinophils % 0.7 Basophils % 0.4 Nucleated RBC % 0 Sodium Potassium Chloride Carbon Dioxide Anion Gap BUN Creatinine Creat Clearance w eGFR Random Glucose Calcium Phosphorus Magnesium Ferritin Total Bilirubin AST ALT Alkaline Phosphatase Total Protein Albumin Urine Color Urine Appearance Urine pH Ur Specific Narka Urine Protein Urine Glucose (UA) Urine Ketones Urine Blood Urine Nitrite Urine Bilirubin Urine Urobilinogen Ur Leukocyte Esterase Ur Random Sodium 48 Ur Random Potassium 21.0 L Ur Random Chloride 30 L Urine Creatinine Blood Type O POSITIVE Antibody Screen Negative Crossmatch See Detail 11/26/17 11/26/17 11/27/17 20:26 20:26 05:30 WBC 9.2 RBC 2.65 L Hgb 8.1 L Hct 23.8 L MCV 89.5 MCH 30.4 MCHC 33.9 RDW 15.0 Plt Count 262 MPV 7.1 L Absolute Neuts (auto) 7.4 Neutrophils % 80.3 Lymphocytes % 10.8 Monocytes % 7.5 Eosinophils % 1.1 Basophils % 0.3 Nucleated RBC % 0 Sodium Potassium Chloride Carbon Dioxide Anion Gap BUN Creatinine Creat Clearance w eGFR Random Glucose Calcium Phosphorus Magnesium Ferritin Total Bilirubin AST ALT Alkaline Phosphatase Total Protein Albumin Urine Color Ltyellow Urine Appearance Clear Urine pH 7.0 Ur Specific Narka 1.011 Urine Protein Negative Urine Glucose (UA) Negative Urine Ketones Negative Urine Blood Negative Urine Nitrite Negative Urine Bilirubin Negative Urine Urobilinogen Negative Ur Leukocyte Esterase Negative Ur Random Sodium Ur Random Potassium Ur Random Chloride Urine Creatinine 106.0 H Blood Type Antibody Screen Crossmatch 11/27/17 11/27/17 05:30 05:30 WBC RBC Hgb Hct MCV MCH MCHC RDW Plt Count MPV Absolute Neuts (auto) Neutrophils % Lymphocytes % Monocytes % Eosinophils % Basophils % Nucleated RBC % Sodium 144 Potassium 4.6 Chloride 115 H Carbon Dioxide 26 Anion Gap 3 L BUN 11 Creatinine 1.0 Creat Clearance w eGFR > 60 Random Glucose 78 Calcium 6.7 L* Phosphorus 3.2 Magnesium 2.1 Ferritin 12.9 Total Bilirubin 0.5 AST 13 L ALT 11 L Alkaline Phosphatase 49 Total Protein 4.2 L Albumin 2.0 L Urine Color Urine Appearance Urine pH Ur Specific Nark[place] Urine Protein Urine Glucose (UA) Urine Ketones Urine Blood Urine Nitrite Urine Bilirubin Urine Urobilinogen Ur Leukocyte Esterase Ur Random Sodium Ur Random Potassium Ur Random Chloride Urine Creatinine Blood Type Antibody Screen Crossmatch Active Medications Generic Name Dose Route Start Last Admin Trade Name Freq PRN Reason Stop Dose Admin Al Hydroxide/Mg Hydroxide 30 ml 11/27/17 12:15 11/27/17 13:48 Mylanta Oral Suspension - PO 30 ml Q6HPO JAY Administration Chlorhexidine Gluconate 1 applic 11/27/17 22:00 Hibiclens For Decolonization - TP HS JAY Sodium Chloride 1,000 mls @ 125 mls/hr 11/26/17 15:33 11/27/17 10:08 Normal Saline - IV 125 mls/hr ASDIR JAY Administration Pantoprazole Sodium 160 mg/ 290 mls @ 14.5 mls/hr 11/27/17 10:00 11/27/17 10: 42 Dextrose IVPB 14.5 mls/hr Q20H JAY Administration Mupirocin 1 applic 11/27/17 10:00 11/27/17 10:08 Bactroban Ointment (For Decolonization) - NS 12/02/17 09:59 1 applic BID JAY Administration Ondansetron HCl 4 mg 11/27/17 00:43 11/27/17 02:00 Zofran Injection IVPUSH 4 mg Q6H PRN Administration NAUSEA AND/OR VOMITING ASSESSMENT/PLAN: Familia De La Cruz is a 69yo man with a PMH of sickle trait, HLD, unknown mood disorder , back pain, recent RLE fracture with surgical repair who presented yesterday with symptomatic anemia to 6.8 due to GI bleed with hematemesis and melena for two weeks. He was monitored in the ICU overnight, and his symptoms improved following 3u RBCs and IV fluids. EGD indicated no active bleeding at this time. His condition has improved and he no longer requires ICU-level care. Neuro: - Reports back and RLE pain - Avoid NSAIDs for pain control - On oxycodone at home; not ordered at this time. Will monitor CV: - Hypotensive, orthostatic on admission, now improved following transfusions and IV fluid resuscitation - Continuous cardiac monitoring - Continue IVF Pulm: - No issues, on room air - IS 10x per hour Heme: - Acute blood loss anemia to 6.8 with improvement to 8.1 following 3u RBCs transfused overnight. Appropriate increase in the setting of additional resuscitation with IV fluids. - Monitor daily CBC GI: - h/o hematemesis and melena - GI following - EGD this morning with gastric ulcers but no active bleeding noted currently. Recommending repeat EGD in 3 months - Continue pantoprazole drip - Diet advanced per GI Renal: - MAGGIE noted on admission labs with Cr to 1.5. Resolved following IVF. - UA negative - Monitor I/O ID: - No issues Endo: - No issues Psych: - h/o mood disorder - Holding home depakote while acutely ill per primary team Musc: - OOB as tolerated PPx: - SCD's, no heparin or lovenox given GI bleed - Pantoprazole drip FEN: - Clear liquids - NS @125 - Replete lytes PRN Dispo: - Transfer to floor. Discussed with Dr Patterson and ICU team. Stephanie Vera PGY1 Visit type - Emergency Visit Emergency Visit: No - New Patient This patient is new to me today: No - Critical Care Critical Care patient: Yes Total Critical Care Time (in minutes): 45 Critical Care Statement: The care of this patient involved high complexity decision making to prevent further life threatening deterioration of the patient 's condition and/or to evaluate & treat vital organ system(s) failure or risk of failure.
[2017-11-27] MEDS ORDERED: SODIUM CHLORIDE 1,000 ML IV SCH (15:55)
[2017-11-27 17:22] LABS: BASO % 0.4 % (0-2.0); EOS % 1.9 % (0-4.5); HEMATOCRIT 25.3 % (35.4-49); HEMOGLOBIN 8.6 GM/dL (11.7-16.9); LYMPH % 11.1 % (8-40); MCH 30.2 pg (25.7-33.7); MCHC 33.9 g/dl (32.0-35.9); MEAN PLT VOLUME 7.2 fl (7.5-11.1); MONO % 8.5 % (3.8-10.2); NEUT % 78.1 % (42.8-82.8); PLATELET COUNT 314 K/MM3 (134-434); RBC 2.84 M/mm3 (4.00-5.60); RDW 15.1 % (11.9-15.9); WHITE BLOOD COUNT 8.9 K/mm3 (4.0-10.0)
[2017-11-27] MEDS ORDERED: CHLORHEXIDINE GLUCONATE 4% CLEANSER FOR DECOLONIZATION TP SCH (22:00)
[2017-11-28] MEDS ORDERED: MAG HYDROX/AL HYDROX/SIMETH 30 ML UNIT-DOSE CUP PO SCH
[2017-11-28] MEDS ORDERED: PANTOPRAZOLE SODIUM 160 MG in DEXTROSE 5%-WATER - 290 ML IVPB SCH (06:00)
[2017-11-28 07:24] LABS: BASO % 0.3 % (0-2.0); EOS % 1.3 % (0-4.5); HEMATOCRIT 26.9 % (35.4-49); HEMOGLOBIN 8.9 GM/dL (11.7-16.9); LYMPH % 5.5 % (8-40); MCH 29.7 pg (25.7-33.7); MCHC 33.2 g/dl (32.0-35.9); MEAN CELL VOLUME 89.4 fl (80-96); MEAN PLT VOLUME 7.2 fl (7.5-11.1); MONO % 6.4 % (3.8-10.2); NEUT % 86.5 % (42.8-82.8); PLATELET COUNT 318 K/MM3 (134-434); RBC 3.01 M/mm3 (4.00-5.60); RDW 14.6 % (11.9-15.9); WHITE BLOOD COUNT 12.1 K/mm3 (4.0-10.0)
[2017-11-28 07:33] VITALS: TEMP 98.4
[2017-11-28 08:01] LABS: ALBUMIN 2.2 g/dl (3.4-5.0); ALK PHOS 59 U/L (45-117); ANION GAP 3 MMOL/L (8-16); BILIRUBIN,TOTAL 0.6 mg/dL (0.2-1); BLOOD UREA NITROGEN 10 mg/dL (7-18); CHLORIDE 110 mmol/L (98-107); CO2 27 mmol/L (21-32); CREATININE 1.1 mg/dL (0.55-1.3); GLUCOSE,RANDOM 79 mg/dL (74-106); POTASSIUM 4.7 mmol/L (3.5-5.1); SGOT/AST 12 U/L (15-37); SGPT/ALT 12 U/L (13-61); SODIUM 141 mmol/L (136-145); TOT PROT 4.6 g/dl (6.4-8.2)
[2017-11-28 08:06] LABS: SERUM IRON SATURATION 20 % (15-55); TOTAL IRON BINDING CAPACITY 171 ug/dL (250-450); UIBC 137 ug/dL (111-343)
[2017-11-28] MEDS ORDERED: PANTOPRAZOLE 40 MG TABLET (FP) PO SCH (10:00)
[2017-11-28] MEDS ORDERED: DIVALPROEX NA *ER* EXTEND REL 500 MG TABLET.SA (FP) PO SCH (10:00)
[2017-11-28 10:41] VITALS: BP 113/64; PULSE 74
--- NOTE | 2017-11-28 11:33 | PN ---
Progress Note (short form) - Note Progress Note: PULMONARY/CCM Tolerating clears. H/H stable. No shortness of breath or chest pain. Vital Signs Period Temp Pulse Resp BP Sys/Connell Pulse Ox Last 24 Hr 97.8 F-98.4 F 63-81 16-21 96-131/64-88 100 Gen: NAD at rest Heart: RRR Lung: decreased breath sounds at the bases Abd: soft, nontender Ext: no edema CBC, BMP 11/28/17 06:40 11/28/17 06:40 Active Medications Divalproex Sodium (Depakote *Er* -) 500 mg PO DAILY REPLACED BY [facility] Last Admin: 11/28/17 10:27 Dose: 500 mg Ondansetron HCl (Zofran Injection) 4 mg IVPUSH Q6H PRN PRN Reason: NAUSEA AND/OR VOMITING Pantoprazole Sodium (Protonix -) 40 mg PO BID REPLACED BY [facility] Last Admin: 11/28/17 10:25 Dose: 40 mg A/P GI Bleed from antral ulcers/NSAID use Acute Blood Loss Anemia stable Hyperlipidemia Sickle Trait - monitor H/H - continue protonix - advance diet per GI - DVT prophylaxis - d/c planning
--- NOTE | 2017-11-28 14:05 | DS ---
Physical Examination Vital Signs: Vital Signs Temperature 98.4 F 11/28/17 10:00 Pulse Rate 74 11/28/17 10:00 Respiratory Rate 18 11/28/17 10:00 Blood Pressure 113/64 11/28/17 10:00 O2 Sat by Pulse Oximetry (%) 100 11/28/17 09:00 Constitutional: Yes: Well Nourished, No Distress, Calm Cardiovascular: Yes: WNL, Regular Rate and Rhythm. No: Murmur Respiratory: Yes: WNL, Regular, CTA Bilaterally. No: Accessory Muscle Use, Rhonchi, SOB, Tachypnea, Wheezes Gastrointestinal: Yes: WNL, Normal Bowel Sounds, Soft. No: Distention, Hematemesis, Tenderness, Vomiting Renal/: Yes: WNL Musculoskeletal: Yes: WNL Extremities: Yes: WNL Edema: No Neurological: Yes: WNL, Alert, Oriented Psychiatric: Yes: WNL, Alert, Oriented Labs: CBC, BMP 11/28/17 06:40 11/28/17 06:40 Discharge Summary Reason For Visit: ANEMIA, HEMATEMESIS, MELENA Current Active Problems MAGGIE (acute kidney injury) (Acute) Acute blood loss anemia (Acute) Anemia (Acute) Antral ulcer (Acute) BPH (benign prostatic hyperplasia) (Acute) GIB (gastrointestinal bleeding) (Acute) Hematemesis (Acute) Hypocalcemia (Acute) Melena (Acute) Mood disorder (Acute) UGIB (upper gastrointestinal bleed) (Acute) Hospital Course: 69 year old male admitted for hematemesis, melena, symptomatic acute blood loss anemia. suspect 2/2 nsaid, mayi-seltzer use. s/p egd, revealed 2 large gastric antrum ulcers w/out bleeding. Pt received 3 units of prbcs, hg/hct stable. Pt tolerating diet. Pt cleared by GI, advise repeat EGD in 3 months, continue protonix.Otherwise, vitals stable, labs unremarkable, symptoms resolved, ambulating without difficulty. Advised pt to avoid nsaids and to consult with pcp before starting any medications. Pt reports understanding of plan. PCP informed of discharge. Pt is medically stable for discharge from hospital. Condition: Stable - Instructions Diet, Activity, Other Instructions: activity/diet as tolerated AVOID MAYI-SELTZER, ADVIL, IBUPROFEN PLEASE CONSULT WITH PCP BEFORE TAKING ANY OVER THE COUNTER MEDICATIONS repeat EGD In 3 months, follow up with GI Referrals: Manjinder Crews MD [Staff Physician] - 1 Month Stalin Gonsales MD [Staff Physician] - 1 Week Disposition: HOME - Home Medications Comprehensive Discharge Medication List: Ambulatory Orders Divalproex [Depakote -] 500 mg PO DAILY 03/29/17 Multivit-Min/FA/Lycopen/Lutein [Centrum Silver Tablet] 1 each PO DAILY 05/30/17 Oxycodone HCl [Oxycontin] 30 mg PO BID PRN 05/30/17 Folic Acid 1 mg PO DAILY 11/26/17 Pantoprazole Sodium [Protonix -] 40 mg PO BID #60 tablet.ec 11/28/17
--- NOTE | 2017-11-29 14:26 | PATH ---
Surgical Pathology Report Patient Name: HUMERA ELIZONDO [facility]. Rec. #: [id number] /Age/Gender: 02/11/1948 (Age: 69) / M Account: [id number] Location: [address] [place] [address]/[facility] Taken: 11/27/2017 Received: 11/27/2017 Reported: 11/28/2017 Physicians: Елена Reyes M.D. Specimen(s) Received BX ANTRUM Clinical History GI bleed Postoperative diagnosis: Gastric ulcers Final Diagnosis ANTRUM, BIOPSY: GASTRIC MUCOSA SHOWING MODERATELY ACTIVE CHRONIC GASTRITIS WITH INTESTINAL METAPLASIA. IMMUNOSTAIN FOR H. PYLORI IS POSITIVE. Electronically Signed Pete Winter M.D. Gross Description Received in formalin, labeled "biopsy antrum" are 3 cohen, irregular portions of soft tissue ranging from 0.1-0.3 cm. in greatest dimension. The specimens are submitted in toto in one cassette. 11/27/201711/27/2017
== END 2017-11-28 14:39 | disposition home or self-care (01) | DRG 378 ==
LOC: JER 11:06 → JERBED 12:40 → JICU 11-27 01:11 → J5S 11-27 20:50
PROVIDERS: ADMIT Internal Medicine; ATTEND Internal Medicine
PROC: 30233N1 Transfusion of Nonautologous Red Blood Cells into Peripheral Vein, Percutaneous Approach (ICD-10-PCS; 2017-11-26)
PROC: 0DD68ZX Extraction of Stomach, Via Natural or Artificial Opening Endoscopic, Diagnostic (ICD-10-PCS; principal; 2017-11-27 10:30)
DX: K92.2 Gastrointestinal hemorrhage, unspecified (principal); D62 Acute posthemorrhagic anemia; N17.9 Acute kidney failure, unspecified; F39 Unspecified mood [affective] disorder; K25.9 Gastric ulcer, unspecified as acute or chronic, without hemorrhage or perforation; D57.3 Sickle-cell trait; M54.9 Dorsalgia, unspecified; K92.1 Melena; K29.50 Unspecified chronic gastritis without bleeding; N40.0 Benign prostatic hyperplasia without lower urinary tract symptoms; E83.51 Hypocalcemia; E78.5 Hyperlipidemia, unspecified; E86.0 Dehydration
CPT/HCPCS: 36415; 36430; 36511; 71045-TC-FY; 80053; 81003; 82272; 82436; 82570; 82728; 83540; 83550; 83605; 83735; 84100; 84133; 84300; 85025; 85044; 85610; 86850; 86900; 86901; 86922; 88305-TC; 90670; 90688; 93005; 93010; 97116-GP; 97161-GP; 99284-25; G0008; G0009; J0131; J7030; P9038; P9058

== ENCOUNTER 2018-05-02 10:04 | Day surgery (SDC) | payer OTHER ==
[2018-05-01 14:09] VITALS: BMI 23.1
[2018-05-02 11:32] VITALS: TEMP 97.5
[2018-05-02 13:24] VITALS: BP 123/82; PULSE 66
--- NOTE | 2018-05-05 17:23 | PATH ---
Surgical Pathology Report Patient Name: HUMERA ELIZONDO [facility]. Rec. #: [id number] /Age/Gender: 02/11/1948 (Age: 70) / M Account: [id number] Location: [facility]OS[facility] Taken: 05/02/2018 Received: 05/02/2018 Reported: 05/05/2018 Physicians: Manjinder Crews M.D. Specimen(s) Received A: DUODENUM AND DUODENAL BULB B: ANTRUM Clinical History History of gastric ulcer Postoperative diagnosis: Healed gastric ulcer, GERD Final Diagnosis A. SECOND PORTION DUODENUM AND BULB, BIOPSY: DUODENUM MUCOSA WITH NO DIAGNOSTIC ABNORMALITIES. NO HISTOLOGIC EVIDENCE OF CELIAC DISEASE. B. ANTRUM, BIOPSY: GASTRIC MUCOSA WITH CHRONIC GASTRITIS AND INTESTINAL METAPLASIA. IMMUNOSTAIN FOR H. PYLORI IS NEGATIVE. Electronically Signed Pete Winter M.D. Gross Description A. Received in formalin, labeled "biopsy second portion of duodenum and duodenal bulb" are 3 cohen, irregular portions of soft tissue ranging from 0.5-0.6 cm. in greatest dimension. The specimens are submitted in toto in one cassette. B. Received in formalin, labeled "biopsy antrum" are 6 cohen, irregular portions of soft tissue ranging from 0.1-0.5 cm. in greatest dimension. The specimens are submitted in toto in one cassette. /05/02/2018 [facility]05/02/2018
== END 2018-05-02 12:55 | disposition home or self-care (01) ==
LOC: JASU-ENDO 10:04
PROVIDERS: ATTEND Internal Medicine Gastroenterology
PROC: 0DB68ZX Excision of Stomach, Via Natural or Artificial Opening Endoscopic, Diagnostic (ICD-10-PCS; principal; 2018-05-02 11:00)
DX: K21.0 Gastro-esophageal reflux disease with esophagitis (principal)
CPT/HCPCS: 88305-TC; 88342-TC

== ENCOUNTER 2018-05-13 13:13 | Emergency (ER) | payer OTHER ==
[2018-05-13 13:30] VITALS: BP 109/73; PULSE 83; TEMP 98.3; BMI 22.9
--- NOTE | 2018-05-13 13:57 | PDOC ---
History of Present Illness - General Chief Complaint: Ear Problem Stated Complaint: PT. HERE FOR LT. EAR INFECTION X 2 WEEKS /PAIN=6 Time Seen by Provider: 05/13/18 13:45 - History of Present Illness Initial Comments: 05/13/18 13:54 70-year-old male presents for evaluation of cerumen impaction 2 weeks right ear. Takes Depakote for mood disorders folic acid and omeprazole for bleeding ulcers. Past History - Past Medical History Allergies/Adverse Reactions: Allergies Allergy/AdvReac Type Severity Reaction Status Date / Time morphine Allergy Severe Vomiting Verified 11/26/17 12:08 Penicillins Allergy Intermediate Vomiting Verified 11/26/17 12:08 Home Medications: Ambulatory Orders Divalproex [Depakote -] 500 mg PO DAILY 03/29/17 Multivit-Min/FA/Lycopen/Lutein [Centrum Silver Tablet] 1 each PO DAILY 05/30/17 Folic Acid 1 mg PO DAILY 11/26/17 Divalproex Sodium [Depakote] 250 mg PO HS 05/01/18 Valier-3/Dha/Epa/Fish Oil [Valier 3 500 Softgel] 1 each PO BID 05/01/18 Mag Carb/Aluminum Hydrox/Algin [Gaviscon Liquid] 30 ml PO PRN PRN #0 oral.susp 05/02/18 Pantoprazole Sodium [Protonix -] 40 mg PO DAILY #60 tablet.ec 05/02/18 Ciprofloxacin HCl/Dexameth [Ciprodex Otic Suspension] 4 drop AD BID 5 Days #1 bottle 05/13/18 Anemia: (SICKLE CELL TRAIT) Asthma: No Cancer: No Cardiac Disorders: No CVA: No COPD: No CHF: No Dementia: No Diabetes: No GI Disorders: Yes (BLEEDING ULCER) Disorders: No HTN: No Hypercholesterolemia: Yes Liver Disease: No Psychiatric Problems: Yes Seizures: No Thyroid Disease: No - Surgical History Abdominal Surgery: Yes (double hernia: 2001; hernia: 11/17/13) Appendectomy: No Cardiac Surgery: No (SURGERY AGAIN, YET IS "UPSET" AND IS REFUSING TO HAVE THIS DONE.) Cholecystectomy: No Lung Surgery: No Neurologic Surgery: No Orthopedic Surgery: Yes (Rt. Wrist, Rt. shoulder fx'-NO SURGERY) - Suicide/Smoking/Psychosocial Hx Smoking Status: No Smoking History: Former smoker Have you smoked in the past 12 months: No Number of Cigarettes Smoked Daily: 0 If you are a former smoker, when did you quit?: 1994 Cigars Per Day: 1 Information on smoking cessation initiated: No 'Breaking Loose' booklet given: 03/29/17 Hx Alcohol Use: No Drug/Substance Use Hx: No Substance Use Type: None Hx Substance Use Treatment: No Review of Systems - Review of Systems Constitutional: No: Fever HEENTM: Yes: Ear Pain *Physical Exam - Vital Signs Last Vital Signs Temp Pulse Resp BP Pulse Ox 98.3 F 83 18 109/73 100 05/13/18 13:25 05/13/18 13:25 05/13/18 13:25 05/13/18 13:25 05/13/18 13:25 - Physical Exam Comments: 05/13/18 13:55 HEAD: NC/AT EYES: Conjuntiva clear Ears: Tympanic membrane ear canal and left and normal. There is a large cerumen plug in the right ear tympanic membrane is not visualized. MS: Full ROM in all joints without edema NEUROLOGIC: No gross sensory or motor deficits, NVID SKIN: Normal color and temperature no lesions or rashes Medical Decision Making - Medical Decision Making 05/13/18 13:55 And get curette, a large piece of cerumen was removed from the right ear there was mild canal irritation. Small amount of bleeding. I will put him on Ciprodex and have him follow-up with ENT for the remainder of the cerumen plug removal. *DC/Admit/Observation/Transfer Diagnosis at time of Disposition: Cerumen impaction - Discharge Dispostion Disposition: HOME Condition at time of disposition: Stable Decision to Admit order: No - Referrals Referrals: David Martel MD [Staff Physician] - - Patient Instructions Printed Discharge Instructions: DI for Cerumen Impaction, Cerumen Impaction Additional Instructions: Please follow-up with ear nose and throat doctor in 1-2 days for further evaluation and treatment options and removal of the remainder of the cerumen. I' ve placed on prophylactic antibiotic drops which should help with her pain it also has a steroid in return to the emergency room for worsening symptoms continue your regular medication as scheduled. - Post Discharge Activity
== END 2018-05-13 14:42 | disposition home or self-care (01) ==
LOC: JERFT 13:13
PROC: 09C37ZZ Extirpation of Matter from Right External Auditory Canal, Via Natural or Artificial Opening (ICD-10-PCS; principal; 2018-05-13)
DX: H61.21 Impacted cerumen, right ear (principal); E78.00 Pure hypercholesterolemia, unspecified; Z87.19 Personal history of other diseases of the digestive system; D57.3 Sickle-cell trait
CPT/HCPCS: 69210; 99281-25

== ENCOUNTER 2018-09-10 11:46 | Emergency (ER) | payer OTHER ==
[2018-09-10 11:52] VITALS: BP 129/74; PULSE 80; TEMP 97.9; BMI 22.9
--- NOTE | 2018-09-10 12:33 | PDOC ---
History of Present Illness - General Chief Complaint: Pain Stated Complaint: RT LEG PAIN Time Seen by Provider: 09/10/18 11:57 - History of Present Illness Initial Comments: 09/10/18 12:31 70-year-old male presents for evaluation of right leg pain. A year ago he had an intramedullary nail placed in his tibia since that time has been having pain. No systemic symptoms. Past History - Past Medical History Allergies/Adverse Reactions: Allergies Allergy/AdvReac Type Severity Reaction Status Date / Time morphine Allergy Severe Vomiting Verified 09/10/18 11:52 Penicillins Allergy Intermediate Vomiting Verified 09/10/18 11:52 Home Medications: Ambulatory Orders Divalproex [Depakote -] 500 mg PO DAILY 03/29/17 Multivit-Min/FA/Lycopen/Lutein [Centrum Silver Tablet] 1 each PO DAILY 05/30/17 Folic Acid 1 mg PO DAILY 11/26/17 Divalproex Sodium [Depakote] 250 mg PO HS 05/01/18 [place]-3/Dha/Epa/Fish Oil [[place] 3 500 Softgel] 1 each PO BID 05/01/18 Mag Carb/Aluminum Hydrox/Algin [Gaviscon Liquid] 30 ml PO PRN PRN #0 oral.susp 05/02/18 Pantoprazole Sodium [Protonix -] 40 mg PO DAILY #60 tablet.ec 05/02/18 Ciprofloxacin HCl/Dexameth [Ciprodex Otic Suspension] 4 drop AD BID 5 Days #1 bottle 05/13/18 Anemia: (SICKLE CELL TRAIT) Asthma: No Cancer: No Cardiac Disorders: No CVA: No COPD: No CHF: No Dementia: No Diabetes: No GI Disorders: Yes (BLEEDING ULCER) Disorders: No HTN: No Hypercholesterolemia: Yes Liver Disease: No Psychiatric Problems: Yes Seizures: No Thyroid Disease: No Other medical history: arthritis of lowe back - Surgical History Abdominal Surgery: Yes (double hernia: 2001; hernia: 11/17/13) Appendectomy: No Cardiac Surgery: No (SURGERY AGAIN, YET IS "UPSET" AND IS REFUSING TO HAVE THIS DONE.) Cholecystectomy: No Lung Surgery: No Neurologic Surgery: No Orthopedic Surgery: Yes (Rt. Wrist, Rt. shoulder fx'-NO SURGERY) - Suicide/Smoking/Psychosocial Hx Smoking Status: No Smoking History: Never smoked Have you smoked in the past 12 months: No Number of Cigarettes Smoked Daily: 0 If you are a former smoker, when did you quit?: 1994 Cigars Per Day: 1 Information on smoking cessation initiated: No 'Breaking Loose' booklet given: 03/29/17 Hx Alcohol Use: No Drug/Substance Use Hx: No Substance Use Type: None Hx Substance Use Treatment: No Review of Systems - Review of Systems Constitutional: No: Fever Musculoskeletal: Yes: See HPI *Physical Exam - Vital Signs Last Vital Signs Temp Pulse Resp BP Pulse Ox 97.9 F 80 19 129/74 100 09/10/18 11:49 09/10/18 11:49 09/10/18 11:49 09/10/18 11:49 09/10/18 11:49 - Physical Exam Comments: 09/10/18 12:31 Right leg skin color and temperature are normal thigh and calf are soft and nontender surgical incisions are well-healed mild tenderness at the proximal and medial aspect of the tibia. ED Treatment Course - RADIOLOGY Radiology Studies Ordered: Category Date Time Status LEG TIB/FIB-RIGHT [RAD] Stat Radiology 09/10/18 12:05 Taken Medical Decision Making - Medical Decision Making 09/10/18 12:32 Tibial intramedullary nail is well seated without evidence of hardware loosening fractures are well-healed. This is painful hardware patient will refer back to orthopedic surgery *DC/Admit/Observation/Transfer Diagnosis at time of Disposition: Painful orthopaedic hardware - Discharge Dispostion Disposition: HOME Condition at time of disposition: Stable Decision to Admit order: No - Referrals Referrals: Stalin Gonsales MD [Primary Care Provider] - Stalin Tafoya MD [Staff Physician] - - Patient Instructions Additional Instructions: Follow-up with your operating orthopedic surgeon for further evaluation and treatment options. Return to the emergency room for worsening symptoms. - Post Discharge Activity
== END 2018-09-10 12:47 | disposition home or self-care (01) ==
LOC: JERFT 11:46
DX: M79.604 Pain in right leg (principal); Y83.8 Other surgical procedures as the cause of abnormal reaction of the patient, or of later complication, without mention of misadventure at the time of the procedure; E78.00 Pure hypercholesterolemia, unspecified; F99 Mental disorder, not otherwise specified; E87.1 Hypo-osmolality and hyponatremia; Z87.891 Personal history of nicotine dependence
CPT/HCPCS: 73590-TC-RT-FY; 99281-25